=== PATIENT | female | born 1980 | race Caucasian/White ===

== ENCOUNTER 2018-04-08 13:13 | Emergency (ER) | payer MEDICAID, SELFPAY ==
[2018-04-08 13:28] VITALS: BP 145/92; PULSE 66; RESP 16; TEMP 37.2; O2SAT 99
--- NOTE | 2018-04-08 15:14 | ED.GENADUL_ITS ---
Discharge Plan Disposition Patient Disposition: HOME Condition: Good Discharge Details Chief Complaint: EarProblem Clinical Impression: URI, acute Primary Care Provider: Kayla Salguero V ED Provider: Elfego Morse Home Meds and New Rx's Prescriptions: No Action levonorgestrel [Mirena] 1 EACH intrauterine device 1 ea Intrauterine RF: 0 losartan 25 MG tablet 25 mg PO DAILY RF: 0 halobetasol propionate [Ultravate] 50 GM ointment 50 gm Topical HS Qty: 1 RF: 0 Discharge Instructions Stand Alone Forms: Work Release Referrals: [facility] Emergency Dept. [Outside] Discharge Data Discharge Date/Time-TO BE ENTERED AT DEPARTURE: 04/08/18 15:30 Medical Decision Making Probably start of uri. I advised to get plenty of rest and fluids. Return if symptoms worsen. Work note provided. HPI General Mode of arrival: ambulatory . Date/Time Provider Initiated Documentation: 04/08/18 15:12 . Limitations to Documentation: no limitations . Information obtained by: patient and family . History of Present Illness 38 year old F presents to the emergency department with the chief complaint of uri, HPI Narrative: 38 y/o here with c/o right ear pain and cough for last 24 hours. Daughter same complaint for two days. Kerry is a smoker. Denies any other symptoms. Related Data Home Medications Medication Instructions Recorded Confirmed levonorgestrel [Mirena] 1 ea INTRAUTERINE 11/16/12 losartan 25 mg PO DAILY tab-cap 12/07/17 04/08/18 halobetasol propionate [Ultravate 50 gm TOPICAL HS #1 script 12/15/17 04/08/18 0.05%] Previous Rx's Medication Instructions Recorded halobetasol propionate [Ultravate 50 gm TOPICAL HS #1 script 12/15/17 0.05%] Allergies Allergy/AdvReac Type Severity Reaction Status Date / Time No Known Drug Allergies Allergy Unverified 04/08/18 13:28 General Stated Complaint: EarProblem LAST: 5 Review of Systems Constitutional Reports as per HPI Eyes Reports system reviewed and no additional complaints, except as docu ENT Reports otalgia (right) Cardiovascular Reports system reviewed and no additional complaints, except as docu Respiratory Reports cough Gastrointestinal Reports system reviewed and no additional complaints, except as docu PFSH Family History Sister Hypothyroid Social History Smoking/Tobacco Use Status: Current every day Surgical History Cervical Procedure (~04/2012) Dilation and curettage Exam Const General: cooperative, comfortable and no acute distress Nutritional Appearance: average body habitus Orientation: alert, awake and oriented x3 HENHI Head: normal to inspection Ears: hearing grossly normal bilaterally, external ears normal and TM's normal bilaterally General nose exam: external nose normal, nares normal and nasal mucous membranes and turbinates normal Mouth: oral mucosae normal, lip normal, tongue normal, oropharynx normal and moist mucous membranes Throat: posterior oropharynx normal Eyes General: appearance normal, both eyes and all related structures Neck Neck: normal visual inspection, full ROM and no lymphadenopathy Resp Effort & Inspection: normal respiratory effort Auscultation: clear to auscultation bilaterally Cardio Rate: regular rate Rhythm: regular rhythm Skin General skin exam: no rashes or lesions noted Neuro General: alert, awake, oriented x3 and moves all extremities Extrem General: normal to inspection, full ROM and normal capillary refill Psych Appearance: grossly normal Mental Status: mental status grossly normal Speech and Movement: speech and movement normal Mood: congruent mood Affect: normal affect Attitude: cooperative Thought Process: normal Thought Content: normal Insight: insight good Judgment: judgment good Course Vital Signs Temperature 37.2 C 04/08/18 13:28 Pulse 66 04/08/18 13:28 Respiratory Rate 16 04/08/18 13:28 Blood Pressure 145/92 H 04/08/18 13:28 Pulse Oximetry 99 04/08/18 13:28 Temperature 37.2 C 04/08/18 13:28 Temperature Source Oral 04/08/18 13:28 Pulse 66 04/08/18 13:28 Respiratory Rate 16 04/08/18 13:28 Respiratory Effort 04/08/18 13:28 Blood Pressure 145/92 H 04/08/18 13:28 Blood Pressure Position Sitting 04/08/18 13:28 Pulse Oximetry 99 04/08/18 13:28 Oxygen Delivery Method Room Air 04/08/18 13:28 Oxygen Flow Rate 0 04/08/18 13:28
== END 2018-04-08 15:30 | disposition home or self-care (01) ==
PROVIDERS: Emergency Provider Nurse Practitioner Family; PCP Family Medicine
DX: J06.9 Acute upper respiratory infection, unspecified (principal); F17.210 Nicotine dependence, cigarettes, uncomplicated
CPT/HCPCS: 99282

== ENCOUNTER 2019-01-11 15:05 | Outpatient (CLI) | payer MEDICAID, SELFPAY ==
[2019-01-11 16:31] LABS: Anion Gap 10.8 mmol/L (3-11); BUN 11 mg/dL (7-18); CO2 25.2 mmol/L (21.0-32.0); CREATININE 0.74 mg/dL (0.55-1.02); Calcium 8.9 mg/dL (8.5-10.1); Calculated LDL 117 mg/dL; Chloride 101 mmol/L (98-107); Cholesterol 201 mg/dL (50-200); Glucose 85 mg/dL (70-100); HDL Cholesterol 52 mg/dL (40-60); Sodium 137 mmol/L (136-145); Triglyceride 161 mg/dL (30-150)
== END 2019-01-11 15:25 ==
PROVIDERS: PCP Family Medicine; Visit Provider Specialist/Technologist Athletic Trainer
DX: Z13.228 Encounter for screening for other metabolic disorders (principal); Z13.220 Encounter for screening for lipoid disorders; Z00.00 Encounter for general adult medical examination without abnormal findings
CPT/HCPCS: 36415; 80048; 80061; 83721

== ENCOUNTER 2019-05-20 18:51 | Outpatient (REF) | payer MEDICAID, SELFPAY | END 2019-05-20 19:11 | LOC: NCHCN 18:51 | PROVIDERS: PCP Family Medicine; Visit Provider Nurse Practitioner Family | DX: R10.9 Unspecified abdominal pain (principal) | CPT/HCPCS: 87086 ==

== ENCOUNTER 2019-06-28 16:10 | Outpatient (REF) | payer MEDICAID, SELFPAY ==
[2019-06-28 19:43] LABS: HCT 40.6 % (36.0-46.0); HGB 13.8 g/dL (12.0-15.5); Mean Corpuscular Hemoglobin 30.3 pg (27.0-33.0); Mean Corpuscular Volume 89.2 fL (80-95); Mean Platelet Volume 12.4 fL (8.0-11.0); Platelet Count 270 x1000/uL (130-400); RBC 4.55 m/cumm (4.00-5.20); RBC Distribution Width 12.5 % (11.7-14.6); White Blood Cell Count 8.87 k/cumm (4.4-10.8)
[2019-06-28 19:59] LABS: Anion Gap 12.8 mmol/L (3-11); BUN 8 mg/dL (7-18); CO2 26.2 mmol/L (21.0-32.0); CREATININE 0.71 mg/dL (0.55-1.02); Calcium 9.6 mg/dL (8.5-10.1); Chloride 98 mmol/L (98-107); Glucose 88 mg/dL (74-106); Potassium 3.6 mmol/L (3.5-5.1); Sodium 137 mmol/L (136-145); TSH (W/Ref FT4) 1.26 uIU/mL (0.36-3.74)
== END 2019-06-28 16:30 ==
LOC: NCHCN 16:10
PROVIDERS: PCP Family Medicine; Visit Provider Family Medicine
DX: I10 Essential (primary) hypertension (principal); R53.83 Other fatigue
CPT/HCPCS: 80048; 85027; 84443

== ENCOUNTER 2020-06-30 16:43 | Outpatient (REF) | payer MEDICAID, SELFPAY ==
[2020-06-30 19:50] LABS: Anion Gap 11.5 mmol/L (3-11); BUN 10 mg/dL (7-18); CO2 24.5 mmol/L (21.0-32.0); CREATININE 0.73 mg/dL (0.55-1.02); Calcium 9.7 mg/dL (8.5-10.1); Chloride 99 mmol/L (98-107); Glucose 90 mg/dL (74-106); Potassium 3.7 mmol/L (3.5-5.1); Sodium 135 mmol/L (136-145)
== END 2020-06-30 17:03 ==
LOC: NCHCN 16:43
PROVIDERS: PCP Family Medicine; Visit Provider Family Medicine
DX: I10 Essential (primary) hypertension (principal)
CPT/HCPCS: 80048

== ENCOUNTER 2020-07-14 20:36 | Outpatient (REF) | payer MEDICAID, SELFPAY ==
[2020-07-16 14:03] LABS: COVID-19 RT-PCR UVMMC Result Negative (Negative)
== END 2020-07-14 20:37 | disposition home or self-care (01) ==
LOC: NCHCN 20:36
PROVIDERS: PCP Family Medicine; Visit Provider Family Medicine
DX: Z20.822 Contact with and (suspected) exposure to COVID-19 (principal)
CPT/HCPCS: U0003

== ENCOUNTER 2021-06-22 16:31 | Outpatient (REF) | payer MEDICAID, SELFPAY ==
[2021-06-22 19:30] LABS: HCT 41.6 % (36.0-46.0); HGB 14.1 g/dL (11.2-15.7)
[2021-06-22 19:46] LABS: Anion Gap 11.5 mmol/L (3-11); BUN 10 mg/dL (7-18); CO2 23.5 mmol/L (21.0-32.0); CREATININE 0.7 mg/dL (0.55-1.02); Calcium 9.4 mg/dL (8.5-10.1); Chloride 98 mmol/L (98-107); Glucose 97 mg/dL (74-106); Potassium 3.9 mmol/L (3.5-5.1); Sodium 133 mmol/L (136-145); TSH (W/Ref FT4) 1.16 uIU/mL (0.36-3.74)
[2021-06-22 19:52] LABS: Hemoglobin A1C 5.1 % (<5.7)
== END 2021-06-22 16:32 | disposition home or self-care (01) ==
LOC: NCHCN 16:31
PROVIDERS: PCP Family Medicine; Visit Provider Family Medicine
DX: I10 Essential (primary) hypertension (principal); R21 Rash and other nonspecific skin eruption; Z86.59 Personal history of other mental and behavioral disorders
CPT/HCPCS: 80048; 83036; 84443; 85014; 85018

== ENCOUNTER 2021-10-21 15:47 | Outpatient (REF) | payer MEDICAID, SELFPAY ==
--- NOTE | 2021-10-21 15:00 | PAPFT_PTH ---
PATIENT: Kerry Reddy LOC: [facility] U#:[id number] AGE/SX: 41/F ROOM: RE10/21/[address]: [address] : 1980 BED: DIS: 10/21/2021 SPEC #: [id number] RECD: 10/21/21 18:33 STATUS: EVITALindsay REQ #: [id number] SARAH: 10/21/21 15:[address]: Brianda Franz DEPT: [facility] Cytology RECD BY: Maryan Ortiz ENTERED: 10/21/21 18:33 SP TYPE: PAPFT OTHR DR: Kayla Salguero V Tissues: 1 - CX/ENDOCX FOR PAP SMEARS Procedures: PAP THIN PREP/[facility] Screening HPV DNA PROBE Comments: [id number]
[2021-10-23 12:43] LABS: Chlamydia Result Negative (Negative); GC Result Negative (Negative)
== END 2021-10-21 15:48 | disposition home or self-care (01) ==
LOC: LBN 15:47
PROVIDERS: PCP Family Medicine; Visit Provider Nurse Practitioner Family
DX: Z11.3 Encounter for screening for infections with a predominantly sexual mode of transmission (principal); Z12.4 Encounter for screening for malignant neoplasm of cervix; Z11.51 Encounter for screening for human papillomavirus (HPV); A59.01 Trichomonal vulvovaginitis; N76.0 Acute vaginitis
CPT/HCPCS: 87491; 87591; 88142; 87624

== ENCOUNTER 2021-11-18 17:11 | Outpatient (REF) | payer MEDICAID, SELFPAY | END 2021-11-18 17:12 | disposition home or self-care (01) | LOC: LBN 17:11 | PROVIDERS: PCP Family Medicine; Visit Provider Physician Assistant Medical | DX: J02.9 Acute pharyngitis, unspecified (principal) | CPT/HCPCS: 87070 ==

== ENCOUNTER 2021-11-25 17:58 | Outpatient (REF) | payer MEDICAID, SELFPAY ==
[2021-11-25 19:22] LABS: Abs Immature Grans 0.04 10^3/uL (0.0-0.06); Absolute Lymphocyte Count 3.14 10^3/uL (1.2-3.4); Absolute Monocyte Count 0.96 10^3/uL (0.1-0.8); Absolute Neutrophil Count 7.92 10^3/uL (1.2-6.7); Basophils % 0.8; Eosinophils % 1.6; HGB 14.1 g/dL (11.2-15.7); Immature Grans % 0.3; Lymphocytes % 25.4; MCH 29.9 pg (27.0-33.0); MCHC 33.6 % (32.0-36.0); MCV 89 fL (80-95); MPV 11.9 fL (8.0-11.0); Monocytes % 7.8; Neutrophils % 64.1; Platelet Count 338 10^3/uL (130-400); RBC 4.71 10^6/uL (3.93-5.22); RDW 12.4 % (11.7-14.6); RDW-SD 40.8 fL; WBC 12.36 10^3/uL (4.4-10.8)
[2021-11-25 19:38] LABS: Glucose 100 mg/dL (74-106); TSH (W/Ref FT4) 0.82 uIU/mL (0.36-3.74)
== END 2021-11-25 17:59 | disposition home or self-care (01) ==
LOC: NCHCN 17:58
PROVIDERS: PCP Family Medicine; Visit Provider Family Medicine
DX: J02.9 Acute pharyngitis, unspecified (principal); R53.83 Other fatigue; B37.0 Candidal stomatitis
CPT/HCPCS: 82947; 84443; 85025; 87070

== ENCOUNTER 2022-04-04 12:59 | Outpatient (CLI) | payer OTHER, MEDICAID, SELFPAY ==
--- NOTE | 2022-04-04 09:00 | DI.RAD_ITS ---
Exam(s) XR FOOT RT COMPLETE EXAM: XR FOOT RT COMPLETE CLINICAL HISTORY: right ankle and foot pain M25.571 PAIN RT ANKLE AND JOINTS RT FOOT. TECHNIQUE: 2D digital imaging was performed. Three views. COMPARISON: CR LEFT FIFTH TOE from 11/07/2008 FINDINGS: BONES: No acute fracture is present. No bony destructive lesion is seen. Enthesophyte at Achilles in sertion. JOINTS: No dislocation present. Plantar arch is maintained. SOFT TISSUE: Normal. IMPRESSION: Unremarkable radiographs of the right foot. DATA REPOSITORY: RADIATION DOSE DELIVERED:
--- NOTE | 2022-04-04 09:00 | DI.RAD_ITS ---
Exam(s) XR ANKLE RT COMPLETE EXAM: XR ANKLE RT COMPLETE CLINICAL HISTORY: right ankle and foot pain, kicked M25.571 PAIN RT ANKLE. TECHNIQUE: 2D digital imaging was performed. Three views. COMPARISON: No exams were available for comparison FINDINGS: BONES: No acute fracture is present. No bony destructive lesion is seen. Small enthesophyte at Ach illes insertion. JOINTS: The ankle mortise is normally aligned. No significant tibiotalar joint space narrowing. SOFT TISSUE: Normal. IMPRESSION: Unremarkable radiographs of the right ankle. DATA REPOSITORY: RADIATION DOSE DELIVERED:
== END 2022-04-04 13:19 ==
PROVIDERS: PCP Family Medicine; Visit Provider Physician Assistant
DX: M25.571 Pain in right ankle and joints of right foot (principal)
CPT/HCPCS: 73610; 73630

== ENCOUNTER 2022-05-01 10:14 | Emergency (ER) | payer MEDICAID, SELFPAY ==
[2022-05-01 10:23] VITALS: BP 153/77; PULSE 73; RESP 16; TEMP 37.1; O2SAT 98
--- NOTE | 2022-05-01 10:30 | DI.RAD_ITS ---
Exam(s) XR WRIST RT COMPLETE EXAM: XR WRIST RT COMPLETE CLINICAL HISTORY: fall injury TECHNIQUE: COMPARISON: No exams were available for comparison FINDINGS: Three views were obtained. There is no evidence of acute fracture or dislocation. Carpal alignment appears within normal limits. IMPRESSION: RADIATION DOSE DELIVERED: Total DLP
--- NOTE | 2022-05-01 10:38 | ED.GENADUL_ITS ---
Discharge Plan Disposition Patient Disposition: Home Condition: Stable Discharge Details Clinical Impression: Right wrist pain Primary Care Provider: Kayla Salguero V ED Provider: Ronen Parks Home Meds and New Rx's Prescriptions: Continued citalopram [Celexa] 10 mg tablet 20 mg PO DAILY chlorthalidone 25 mg tablet 25 mg PO DAILY Mirena 20 mcg/24 hours (5 yrs) 52 mg intrauterine device 1 device IY ONCE Rx Instructions: as a single dose losartan 25 mg tablet 50 mg PO DAILY Label Comments: 01/11/18- 50mg PO daily per pt. Discharge Instructions Instructions: Wrist Injury (ED) Additional Instructions: X-ray is unremarkable. Wrist splint applied, wear as needed, advance activity as tolerated. Rest, elevate, cool compresses every 2 hours for 20 minutes. Hlhl-dhk-[id number] medications such as Tylenol and/or Motrin as directed for discomfort. Please watch for new or worsening symptoms and return to the ER for any concerns. As we discussed, if symptoms persist for the next week or so then I recommend following up with your primary care provider for repeat x-ray. Medical Decision Making This is a 42-year-old female, [id number], presents for right wrist injury she sustained last night when falling from a hover board. Denies any other injuries. Plan is to obtain x-ray and reassess. Neuro, vascular, tendon intact X-ray reveals no acute findings. Discussed x-ray findings with patient. [place] wrist splint applied. Standard discharge and return precautions were provided. Patient understands, is agreeable to this plan, and has no additional questions or concerns upon discharge. This documentation was generated using Run[employer]ation system, please disregard any oddities of phrase or misspellings. Medical Records Medical records reviewed: Yes I reviewed the patient's medical records. Sign Out No HPI General Mode of arrival: ambulatory . Date/Time Provider Initiated Documentation: 05/01/22 10:29 . Limitations to Documentation: no limitations . Information obtained by: patient . History of Present Illness 42 year old F presents to the emergency department with the chief complaint of R wrist injury, described as moderate, with intensity rated at 5. Quality is described as aching, and is localized to the right and upper extremity. Patient reports no radiation. Patient started experiencing this day(s) (1) and it has been constant. Immobilization improves symptom(s), Movement worsens symptoms . Patient notes no other symptoms.. Patient did receive the following treatments prior to arrival, none Related Data Home Medications Medication Instructions Recorded Confirmed chlorthalidone 25 mg tablet 25 mg PO DAILY 10/28/19 05/01/22 citalopram 10 mg tablet (Celexa) 20 mg PO DAILY 10/28/19 05/01/22 losartan 25 mg tablet 50 mg PO DAILY 10/28/19 05/01/22 levonorgestrel 20 mcg/24 hours (8 1 device intrauterine ONCE 01/20/20 05/01/22 yrs) 52 mg intrauterine device (Mirena) Allergies Allergy/AdvReac Type Severity Reaction Status Date / Time No Known Drug Allergies Allergy Verified 04/01/22 12:20 General Stated Complaint: Orthopedic LAST: 4 Review of Systems Constitutional Constitutional: Denies weakness Musculoskeletal Musculoskeletal: Denies deformity, Reports arthralgias, Denies numbness, Reports stiffness and Denies tingling Integumentary/Breasts Skin/Breast: Denies rash Neurologic Neurologic: Denies numbness, Denies tingling and Denies weakness PFSH All Active Problems (Updated 05/01/22 @ 11:50 by COLLIN Almeida) Right wrist pain (Acute) Encounter for insertion of mirena IUD (Acute) Contraception management (Acute) URI, acute (Acute) Acute pharyngitis (Acute) Surgical History Cervical Procedure (~04/2012) [facility]O [place] Dilation and curettage with SAB Family History Sister Hypothyroid Social History Smoking/Tobacco Use Status: Current every day Smoking risk assessment performed?: Yes Alcohol Intake: never Drug use: Never Substance use type: does not use Do you feel safe at home: Yes Do you feel safe in your relationship?: Yes Exam Const General: cooperative, healthy appearing, comfortable and no acute distress Orientation: alert and awake HENMT Head: normal to inspection, normocephalic and atraumatic Mouth: moist mucous membranes Eyes Conjunctivae: conjunctivae normal Neck Neck: normal visual inspection, trachea midline and supple Resp Effort & Inspection: normal respiratory effort and able to speak in complete sentences Cardio Rate: regular rate Rhythm: regular rhythm Skin General skin exam: no rashes or lesions noted Neuro General: patient alert, patient awake, moves all extremities and no focal motor deficits Cognition: normal cognition Speech: speech normal Gait: normal gait Motor: muscle tone normal throughout Sensory Exam: no sensory deficits noted Extrem General: full ROM and capillary refill normal Other: Right wrist with diffuse mild discomfort and swelling, worse over the ulnar aspect. Neuro, vascular, tendon intact. Full range of motion. Normal radial pulse and capillary refill. Small contusion over the lateral elbow. Otherwise hand, shoulder unremarkable Psych Appearance: grossly normal Mental Status: mental status grossly normal Course Vital Signs Vital signs: Vital Signs Temperature 37.1 C 05/01/22 10:23 Pulse 73 05/01/22 10:23 Respiratory Rate 16 05/01/22 10:23 Blood Pressure 153/77 H 05/01/22 10:23 Pulse Oximetry 98 05/01/22 10:23 Temperature 37.1 C 05/01/22 10:23 Temperature Source Temporal Artery Scan 05/01/22 10:23 Pulse 73 05/01/22 10:23 Respiratory Rate 16 05/01/22 10:23 Blood Pressure 153/77 H 05/01/22 10:23 Blood Pressure Position Sitting 05/01/22 10:23 Pulse Oximetry 98 05/01/22 10:23 Oxygen Delivery Method Room Air 05/01/22 10:23 Oxygen Flow Rate 0 05/01/22 10:23 Pain Level 7 05/01/22 10:23
--- NOTE | 2022-05-01 11:19 | DI.VRAD_ITS ---
PROCEDURE INFORMATION: Exam: XR Right Wrist Exam date and time: 05/01/2022 11:06 AM Age: 42 years old Clinical indication: Other: Fall injury TECHNIQUE: Imaging protocol: Radiologic exam of the Right wrist. Views: 3 or more views. COMPARISON: No relevant prior studies available. FINDINGS: Bones/joints: Normal. Soft tissues: Normal. IMPRESSION: No acute findings. Dictated and Authenticated by: Aram Huerta MD. Ordering:MAGALYS Hardwick MD
== END 2022-05-01 12:01 | disposition home or self-care (01) ==
PROVIDERS: Emergency Provider Physician Assistant; PCP Family Medicine
DX: S69.81XA Other specified injuries of right wrist, hand and finger(s), initial encounter (principal); V00.848A Other accident with standing micro-mobility pedestrian conveyance, initial encounter
CPT/HCPCS: 29125; 99283; 73110

== ENCOUNTER 2022-07-01 17:23 | Outpatient (CLI) | payer MEDICAID, SELFPAY ==
--- NOTE | 2022-07-01 16:23 | DI.RAD_ITS ---
Exam(s) XR ELBOW RT COMPLETE EXAM: XR ELBOW RT COMPLETE CLINICAL HISTORY: PAIN IN RT ELBOW, M25.521. TECHNIQUE: 2D digital imaging was performed of the left elbow. Three images were obtained. AP, lat eral and oblique views were obtained. COMPARISON: No exams were available for comparison FINDINGS: BONES: No acute fracture is present. No bony destructive lesion is seen. JOINTS: The elbow is normally aligned. No joint effusion is seen. SOFT TISSUE: Normal. IMPRESSION: Unremarkable radiographs of the right elbow. DATA REPOSITORY: RADIATION DOSE DELIVERED:
== END 2022-07-01 17:43 ==
LOC: DI 17:23
PROVIDERS: PCP Family Medicine; Visit Provider Nurse Practitioner Family
DX: M25.521 Pain in right elbow (principal)
CPT/HCPCS: 73080

== ENCOUNTER 2022-08-12 01:11 | Outpatient (CLI) | payer MEDICAID, SELFPAY ==
--- NOTE | 2022-08-12 | DI.MAMMO_ITS ---
Exam(s) MAMMO SCREENING EXAM: MAMMO SCREENING CLINICAL HISTORY: SCREENING, Z12.31. TECHNIQUE: Bilateral full field digital CC and MLO mammographic images were obtained with 3D tomosyn thesis and utilizing computer aided detection (CAD). COMPARISON: None. This is a baseline mammogram on this 42-year-old patient. FINDINGS: Fibroglandular tissue is moderately dense. There are no obvious spiculated masses nor malignant appearing microcalcification groups. There is no significant architectural distortion nor skin thickening-retraction. IMPRESSION: Dense bilateral fibroglandular tissue. No obvious radiographic evidence of malignancy. BI-RADS Category 1 - Negative Breast Density - Category C - Heterogeneously dense Breast density Category C or D implies that the patient has dense breast tissue. Dense breast tissue can make it harder to find cancer on a mammogram. Dense breast tissue is also associated with an incr eased risk of breast cancer. This information about the result of the mammogram report was provided to the patient to raise their awareness. Use this report when you speak with the patient about their risks for breast cancer, which includes their family history. At that time, you may recommend additional screening tests (Ultrasoun d or MRI) as these tests may add significant information. A negative radiographic report should not delay biopsy if a dominant or clinically suspicious mass is present. Up to ten percent of cancers are not identified on mammography. A negative report may reinforce clinical impression. Adenosis and dense breasts may obscure an underlying neoplasm. False positive reports average 6 to 10%. Patient will receive a letter notifying them of these results.
== END 2022-08-12 01:31 ==
LOC: DI 01:11
PROVIDERS: PCP Family Medicine; Visit Provider Family Medicine
DX: Z12.31 Encounter for screening mammogram for malignant neoplasm of breast (principal)
CPT/HCPCS: 77063; 77067

== ENCOUNTER 2023-08-11 16:23 | Outpatient (REF) | payer MEDICAID, SELFPAY ==
[2023-08-11 15:22] LABS: HCT 44.3 % (36.0-46.0); HGB 15.1 g/dL (11.2-15.7)
[2023-08-11 15:56] LABS: Hemoglobin A1C 5.2 % (<5.7)
[2023-08-11 17:06] LABS: ALT 61 U/L (14-59); AST 58 U/L (15-37); Albumin 4.1 g/dL (3.4-5.0); Alkaline Phosphatase 118 U/L (46-116); Anion Gap 11.2 mmol/L (3-11); BUN 7 mg/dL (7-18); Bilirubin, Total 0.2 mg/dL (0.2-1.0); CO2 25.8 mmol/L (21.0-32.0); CREATININE 0.8 mg/dL (0.55-1.02); Calcium 9.7 mg/dL (8.5-10.1); Chloride 97 mmol/L (98-107); Estimated GFR 94.87 (mL/min/1.73m2); Glucose 91 mg/dL (74-106); Potassium 3.9 mmol/L (3.5-5.1); Sodium 134 mmol/L (136-145); TSH (W/Ref FT4) 1.53 uIU/mL (0.36-3.74); Total Protein 7.9 g/dL (6.4-8.2)
== END 2023-08-11 16:24 | disposition home or self-care (01) ==
LOC: NCHCN 16:23
PROVIDERS: PCP Family Medicine; Referring Provider Family Medicine; Visit Provider Family Medicine
DX: Z00.00 Encounter for general adult medical examination without abnormal findings (principal); I10 Essential (primary) hypertension; R79.89 Other specified abnormal findings of blood chemistry; Z13.1 Encounter for screening for diabetes mellitus
CPT/HCPCS: 80053; 83036; 84443; 85014; 85018

== ENCOUNTER 2023-09-26 15:33 | Outpatient (REF) | payer MEDICAID, SELFPAY ==
[2023-09-28 15:12] LABS: Chlamydia Result Negative (Negative); GC Result Negative (Negative)
== END 2023-09-26 15:34 | disposition home or self-care (01) ==
LOC: LBN 15:33
PROVIDERS: PCP Family Medicine; Visit Provider Nurse Practitioner Women's Health
DX: Z11.3 Encounter for screening for infections with a predominantly sexual mode of transmission (principal)
CPT/HCPCS: 87491; 87591

== ENCOUNTER 2023-09-28 16:46 | Outpatient (REF) | payer MEDICAID, SELFPAY ==
[2023-09-28 19:22] LABS: ALT 61 U/L (14-59); AST 51 U/L (15-37); Albumin 4.3 g/dL (3.4-5.0); Alkaline Phosphatase 120 U/L (46-116); Bilirubin, Direct 0.1 mg/dL (0.0-0.2); Bilirubin, Total 0.3 mg/dL (0.2-1.0)
[2023-09-29 20:28] LABS: Hepatitis A Antibody IgM Negative (Negative); Hepatitis B Core Antibody Negative (Negative); Hepatitis B surface Ag Negative (Negative); Hepatitis C Ab w Rflx HCV PCR Negative (Negative)
== END 2023-09-28 16:47 | disposition home or self-care (01) ==
LOC: NCHCN 16:46
PROVIDERS: PCP Family Medicine; Visit Provider Family Medicine
DX: R74.01 Elevation of levels of liver transaminase levels (principal)
CPT/HCPCS: 80076; 86704; 86709; 86803; 87340

== ENCOUNTER → 2023-10-03 01:32 | Outpatient (CLI) | payer MEDICAID, SELFPAY ==
--- NOTE | 2023-10-03 15:45 | DI.MAMMO_ITS ---
Exam(s) MAMMO SCREENING EXAM: MAMMO SCREENING CLINICAL HISTORY: screening. TECHNIQUE: Bilateral full field digital CC and MLO mammographic images were obtained with 3D tomosyn thesis and utilizing computer aided detection (CAD). COMPARISON: Prior baseline mammogram of August 2022 was reviewed. FINDINGS: The fibroglandular tissue pattern is again noted be moderately dense. There are no obvious new spiculated masses nor malignant appearing microcalcification groups. There is no significant architectural distortion nor skin thickening-retraction. IMPRESSION: No radiographic evidence of malignancy. BI-RADS Category 1 - Negative Breast Density - Category C - Heterogeneously dense Breast density Category C or D implies that the patient has dense breast tissue. Dense breast tissue can make it harder to find cancer on a mammogram. Dense breast tissue is also associated with an incr eased risk of breast cancer. This information about the result of the mammogram report was provided to the patient to raise their awareness. Use this report when you speak with the patient about their risks for breast cancer, which includes their family history. At that time, you may recommend additional screening tests (Ultrasoun d or MRI) as these tests may add significant information. A negative radiographic report should not delay biopsy if a dominant or clinically suspicious mass is present. Up to ten percent of cancers are not identified on mammography. A negative report may reinforce clinical impression. Adenosis and dense breasts may obscure an underlying neoplasm. False positive reports average 6 to 10%. Patient will receive a letter notifying them of these results.
== END ==
PROVIDERS: PCP Family Medicine; Visit Provider Nurse Practitioner Women's Health
DX: Z12.31 Encounter for screening mammogram for malignant neoplasm of breast (principal)
CPT/HCPCS: 77063; 77067

== ENCOUNTER 2023-11-28 15:14 | Outpatient (REF) | payer MEDICAID, SELFPAY ==
[2023-11-28 15:58] LABS: ALT 68 U/L (14-59); AST 64 U/L (15-37)
== END 2023-11-28 15:15 | disposition home or self-care (01) ==
LOC: NCHCN 15:14
PROVIDERS: PCP Family Medicine; Visit Provider Family Medicine
DX: R74.01 Elevation of levels of liver transaminase levels (principal)
CPT/HCPCS: 84450; 84460

== ENCOUNTER → 2023-12-11 02:02 | Outpatient (CLI) | payer MEDICAID, SELFPAY ==
--- NOTE | 2023-12-11 | DI.US_ITS ---
Exam(s) US ABDOMEN LIMITED EXAM: US ABDOMEN LIMITED CLINICAL HISTORY: R74.01 Elevation levels of liver transaminase levels TECHNIQUE: Ultrasound abdomen performed using standard protocol. COMPARISON: US ABDOMEN ULTRASOUND from 05/12/2012 FINDINGS: PANCREAS: Normal where visualized. LIVER: There is diffuse increased echogenicity of the liver consistent with fatty infiltration. Hepa topetal flow in the Portal Vein. The liver measures in 18.0 cm length. No evidence of a hepatic mass. GALLBLADDER: No evidence of cholelithiasis. No evidence of wall thickening. No pericholecystic fluid identified. BILIARY SYSTEM: Common bile duct measures < 7 mm. No intrahepatic biliary ductal dilation. MAHARAJ'S SIGN: Negative. RIGHT KIDNEY: Kidney is normal in size. No evidence of renal calculi. No evidence of hydronephrosis. No renal mass or cyst identified. ASCITES: None seen. IMPRESSION: Hepatic steatosis and hepatomegaly. DATA REPOSITORY:
== END ==
PROVIDERS: PCP Family Medicine; Visit Provider Family Medicine
DX: R74.01 Elevation of levels of liver transaminase levels (principal)
CPT/HCPCS: 76705

== ENCOUNTER 2024-01-19 18:49 | Outpatient (REF) | payer MEDICAID, SELFPAY ==
--- OUTSIDE RECORDS SUMMARY | 2024-01-19 18:51 | XMS_ITS | Encounter Summary ---
Author Organization [facility] [place] [address] [place] [address] Care Team Providers Care Truck Assembler Name Role Phone SanpeteAdwoa ortiz APRN Primary Care Provider Encounter Details Date Type Department Care Team (Late st Contact Info) Description 09/29/2017 4:00 PM EDT Office [place] [address] [facility] [place] [address] Perianal condylomata Social History Tobacco Use Types Packs/Day Years Used Date Smoking Tobacco: Every Day Cigarettes Sex and Gender Information Value Date Recorded Sex Assigned at Not on file Gender Identity Not on file Sexual Orientation Not on file documented as of this encounter Last Filed Vital Signs Vital Sign Reading Time Taken Comments Blood Pressure 147/86 09/29/2017 4:01 PM EDT Pulse 89 09/29/2017 4:01 PM EDT Temperature 36.6 ??C (97.8 ??F) 09/29/2017 4:01 PM ED T Respiratory Rate - - Oxygen Saturation 100% 09/29/2017 4:01 PM EDT Inhaled Oxygen Concentration - - Weight 78 kg (172 lb) 09/29/2017 4:01 PM EDT Height - - Body Mass Index 28.66 09/20/2016 9:38 AM EDT documented in this encounter Progress Notes * Elfego Patton MD - 09/29/2017 4:00 PM EDT Colorectal Surgery Outpatient Visit ~ [facility] HPI: Kerry Reddy is a pleasant 37 y.o. female with known perianal condylomas who presents today with chief complaint of increasing size of her perianal condylomas. She has tried Aldara in the past which was effective but had noticeable side-effects, including fatigue and flu-like symptoms. She did not finish her last course of Aldara in 2017 because her condylomas had shrunk significantly and she couldn't tolerate the side effects of the medication. Despite her challenges with this medication, she is interested in potentially restarting this medication. She denies hematochezia, melena, change in bowel or bladder function, fevers, chills, CP, SOB, nausea or vomiting. The patient's PCP is Kayla Salguero MD. Review of Systems Constitutional: Negative for anorexia, fever, weight loss, malaise/fatigue and chills. Respiratory: Negative for shortness of breath and wheezing. Genitourinary: Negative for urge incontinence. Gastrointestinal: Negative for abdominal discomfort, vomiting, GERD, constipation, nausea, steatorrhea and diarrhea. Musculoskeletal: Negative for myalgias. Endocrine: Negative for polyuria. Cardiovascular: Negative for palpitations and syncope. Skin: Negative for urticaria. Past medical history: Patient Active Problem List Diagnosis Code ??? Perianal condylomata A63.0 Past surgical history: No past surgical history on file. Allergies: Review of patient's allergies indicates no known allergies. Medications: reviewed in the electronic medical record. Current Outpatient Prescriptions on File Prior to Visit Medication Sig Dispense Refill ??? losartan (COZAAR) 25 mg Tablet take 1 tablet by mouth once daily 0 ??? [DISCONTINUED] imiquimod (ALDARA) 5 % Cream in Packet Apply topically three times a week. (Patient not taking: Reported on 01/16/2017) 12 each 3 ??? [DISCONTINUED] acetaminophen (TYLENOL) 650 mg/20.3 mL Solution Take by mouth as needed. No current facility-administered medications on file prior to visit. Social history: reports that she has been smoking. She has been smoking about 0.50 packs per day. She does not have any smokeless tobacco history on file. Family medical history: No family history on file. Patient denies a family history of: colorectal cancer, colorectal polyps, diverticular disease, Crohn disease and ulcerative colitis. Patient admits a family history of: none. Physical exam: Vitals: Blood pressure 147/86, pulse 89, temperature 36.6 ??C (97.8 ??F), weight 78 kg (172 lb), SpO2 100 %. BMI: Body mass index is 28.66 kg/(m^2). General Appearance: well developed and well nourished Neuro: awake, alert and oriented to person, place and time no acute distress Psych: appropriate mood and affect Eyes: extra ocular muscles intact, pupils equally reactive to light and accomodation ENT: neck supple, no lyphadenopathy noted CV: regular rate and rhythm Resp: non-labored without adventitous sounds on auscultation Lymph: no edema noted Abdomen: soft, non-tender, and not distended, no masses or organomegaly Perineal exam: The patient was examined in the prone shelley-knife position with assistance from nursing. Multiple small external perirectal condylomas noted on external exam. Labs: reviewed. Endoscopy: reviewed. Path: reviewed. Imaging: reviewed. COREFO Responses 02/25/2016 03/22/2016 04/07/2016 09/20/2016 09/29/2017 Incontinence Scale 0 0 0 0 0 Social Impact Scale 8.33 2.77 2.77 2.77 2.77 Frequency Scale 0 12.5 0 12.5 12.5 Stool Releated Aspects 8.33 8.33 0 0 0 Medication Scale 0 0 0 0 0 Total COREFO Score 3.84 2.88 0.96 1.92 1.92 The COREFO questionnaire is a validated questionnaire with 27 questions to assess colorectal functional outcome. Patients are asked to consider the two week period prior before filling out the questionnaire. Category scores range from zero to 100. A total score is calculated from the categories above, also ranging from zero to 100. A higher score represents an increased level of functional disturbance. Impression/Plan: Kerry Reddy is a 37 y.o. female with perirectal condylomas. Physical exam demonstrates multiple small external perirectal condylomas. Anoscopy has demonstrated one 3mm right posterior condyloma as well as a left lateral wall lesion. I am concerned that one or both of these intra-luminal lesions may represent an AIN lesion. Given her intolerance of Aldara in the past and new rectal lesions, we'll plan for operative intervention at this time. Patient consented for an exam underanesthesia, desication of perianal warts, and rectal lesion biopsies. Elfego Patton MD I have seen the patient and reviewed the resident's above history and I agree with the details as written. The assessment and plan were formulated in discussion with me and I agree with them as documented. Perineal, FABIEN and anoscopy performed by me Chiu assisted for exam. There are several small, scattered condylomata on the perianal skin - the largest is in right posterior. FABIEN with small irregularity. Anoscopy with large anoscope - there is a 3 mm white plaque in the right posterior anal canal suspicious for AIN. There is granularity of the anal canal in the left lateral - possible intra anal condyloma Given the intra anal canal and perianal condylomata, I have recommended EUA, excision of the intra-anal lesion for histology, and electrodessication of the perianal skin condylomas. We did discuss treatment with Andria for the external lesions but given that therapy was stopped early due to systemic symptoms, I do not think Kerry will be able to complete the treatment this time. Also discussed electrodessication in the office and biopsy - Kerry had this procedure in the office once before - found the injections of numbing medication too painful to do it again Booked for OR - consent signed. I personally spent a total of 25 minutes in [id number] consultation with the patient, of which 15were in patient education and counseling. Rosairo aPrtida MD marklogic developer Division of Colon and Rectal Surgery [facility] Pager [phone] documented in this encounter Plan of Treatment Not on file documented as of this encounter Visit Diagnoses Diagnosis Perianal condylomata Condyloma acuminatum documented in this encounter Care Teams Truck Assembler Relationship Specialty Start Date End Date Adwoa Smith APRN PCP - General 05/04/10 01/06/20 documented as of this encounter
--- OUTSIDE RECORDS SUMMARY | 2024-01-19 18:51 | XMS_ITS | Encounter Summary ---
Author Organization [facility] [place] [address] [place] [address] Care Team Providers Care Professor Of Education Name Role Phone CattaraugusAdwoa ortiz MAKAYLA Primary Care Provider [phone] Reason for Visit * Reason Comments Follow-up Encounter Details Date Type Department Care Team (Latest Contact Info) Description 11/14/2017 3:30 PM EDT Office [place] [id number] Rosario Partida MD [facility] [place] [address] Anal intraepithelial neoplasia I (AIN I) Social History Tobacco Use Types Packs/Day Years Used Date Smoking Tobacco: Every Day Cigarettes Sex and Gender Information Value Date Recorded Sex Assigned at Not on file Gender Identity Not on file Sexual Orientation Not on file documented as of this encounter Last Filed Vital Signs Vital Sign Reading Time Taken Comments Blood Pressure 154/95 11/14/2017 3:11 PM EDT Pulse 75 11/14/2017 3:11 PM EDT Temperature 36.5 ??C (97.7 ??F) 11/14/2017 3:11 PM ED T Respiratory Rate 18 11/14/2017 3:11 PM EDT Oxygen Saturation 99% 11/14/2017 3:11 PM EDT Inhaled Oxygen Concentration - - Weight 77.1 kg (170 lb) 11/14/2017 3:11 PM EDT Height - - Body Mass Index 27.44 10/12/2017 6:44 AM EDT documented in this encounter Progress Notes * Rosario Partida MD - 11/14/2017 3:30 PM EDT Colon and Rectal Surgery Post-operative Check Date = 10/12/2017 Operation = EUA with biopsy of anal canal lesion and fulguration of perianal condyloma LOS = PACU DC 30-day complication/grade of worst = None Path: ? 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 See ??discussion #1. Electronically signed by: ??Milo MCCALL PhD, Vinod Cooper Verified: ??10/17/2017 ?Pathologist Performed at: ??-[facility] Dept. of Pathology, [place], [place] COREFO Responses 03/22/2016 04/07/2016 09/20/2016 09/29/2017 11/14/2017 Incontinence Scale 0 0 0 0 0 Social Impact Scale 2.77 2.77 2.77 2.77 2.77 Frequency Scale 12.5 0 12.5 12.5 0 Stool Releated Aspects 8.33 0 0 0 0 Medication Scale 0 0 0 0 0 Total COREFO Score 2.88 0.96 1.92 1.92 0.96 Interval History: Kerry is doing well. No pain, no bleeding. No issues with incontinence BP (!) 154/95 Pulse 75 Temp 36.5 ??C (97.7 ??F) Resp 18 Wt 77.1 kg (170 lb) SpO2 99% BMI 27.44 kg/m2 Body mass index is 27.44 kg/(m^2). Gen NAD Anal exam with Paz assisting: Anus is closed. No perianal skin irritation. There are 2 persistent anal condyloma in the posterior midline. Non-tender. 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 She still has 2 persistent areas of external anal condyloma. I offered to numb the area and excise these today but she prefers to wait until her follow up visit in 4 months Return to clinic in 4 months for anoscopy to assess for recurrence of AIN and excision of condylomain the office with local anesthesia. 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
--- OUTSIDE RECORDS SUMMARY | 2024-01-19 18:51 | XMS_ITS | Encounter Summary ---
[facility] [place] [address] Care Team Providers Care Tub Operator Name Role Phone TallahatchieAdwoa ortiz APRN Primary Care Provider [phone] Encounter Details Date Type Department Care Team (Late st Contact Info) Description 03/02/2018 Telephone [place] [address] Rosario Partida MD [facility] [place] [address] Social History Tobacco Use Types Packs/Day Years Used Date Smoking Tobacco: Every Day Cigarettes Smokeless Tobacco: Never Alcohol Use Standard Drinks/Week Comments Yes 0 (1 standard drink = 0.6 oz pur e alcohol) social Sex and Gender Information Value Date Recorded Sex Assigned at Not on file Gender Identity Not on file Sexual Orientation Not on file documented as of this encounter Miscellaneous Notes * Telephone Encounter - Rosario Partida MD - 03/02/2018 4:35 PM EDT Called and spoke with Kerry regarding her pathology. Had AIN 1 and condyloma as previous. She is healing well. Will see her back in 4 months for an exam Rosario Paritda MD tie mill operator Division of Colon and Rectal Surgery [facility] Pager [phone] documented in this encounter Plan of Treatment Not on file documented as of this encounter Visit Diagnoses Not on filedocumented in this encounter Care Teams Tub Operator Relationship Specialty Start Date End Date Adwoa Smith APRN PCP - General 05/04/10 01/06/20 documented as of this encounter
--- OUTSIDE RECORDS SUMMARY | 2024-01-19 18:51 | XMS_ITS | Encounter Summary ---
Author Organization [facility] [place] [address] [place] [address] Care Team Providers Care Fuel Oil Clerk Name Role Phone [place]ass[place] ParkAdwoa ortiz MAKAYLA Primary Care Provider [phone] Reason for Visit * Reason Comments Follow-up Encounter Details Date Type Department Care Team (Late st Contact Info) Description 06/26/2018 9:00 AM EST Office Visit [place] [address] Rosario Partida MD [facility] [place] [address] Perianal condylomata Social History Tobacco Use Types [...] Sign Reading Time Taken Comments Blood Pressure 139/89 06/26/2018 9:02 AM EST Pulse 74 06/26/2018 9:02 AM EST Temperature 36.6 ??C (97.9 ??F) 06/26/2018 9:02 AM ES T Respiratory Rate 18 06/26/2018 9:02 AM EST Oxygen Saturation 96% 06/26/2018 9:02 AM EST Inhaled Oxygen Concentration - - Weight 78 kg (172 lb) 06/26/2018 9:02 AM EST Height - - Body Mass Index 27.76 02/20/2018 9:12 AM EDT documented in this encounter Progress Notes * Rosario Partida MD - 06/26/2018 9:00 AM EST Colon and Rectal Surgery Follow-up Office Visit COREFO Responses 09/20/2016 09/29/2017 11/14/2017 02/20/2018 06/26/2018 Incontinence Scale 0 0 0 0 2.77 Social Impact Scale 2.77 2.77 2.77 5.55 8.33 Frequency Scale 12.5 12.5 0 12.5 0 Stool Releated Aspects 0 0 0 8.33 0 Medication Scale 0 0 0 0 8.33 Total COREFO Score 1.92 1.92 0.96 3.84 4.8 Interval History: Kerry is a 38 yo woman with a history of anal condyloma and AIN1 treated with local excision in the office and then excision and electrodesiccation in the office. She was last seenby me in February 2018. She returns today for routine follow up. Overall thinks things are going well. Notes feeling a small lesion on the right labia. Nothing significant she has noted around the anus. No lymph nodes, no rectal bleeding. BP 139/89 Pulse 74 Temp 36.6 ??C (97.9 ??F) Resp 18 Wt 78 kg (172 lb) SpO2 96% BMI 27.76 kg/m?? Body mass index is 27.76 kg/m??. The patient was examined in the prone shelley knife position with Aram assisting. The perianal skin has condylomatous lesions on the right anterior towards the right labia, in the posterior midline towards the coccyx, and 2 much smaller condylomatous lesions in the left lateral anal skin. The anus isclosed. On digital rectal exam resting tone is normal and squeeze tone is normal. There is normal relaxation with valsalva. There are no masses. There is no gross blood. There is no tenderness to palpation. Anoscopy: The well lubricated anoscope was inserted into the anal canal and the entire anal canal and distal rectum were inspected. Findings include: normal distal rectal mucosa. No condylomatous appearing lesions in the anal canal. After obtaining informed consent for treatment of the perianal lesions with excision and electrocautery, the skin was prepped with betadine. The skin of the anal margin was numbed with 1% lidocaine plain (7cc injected). The 4 condylomatous lesions were excised with scissors. The base of each lesionwas then treated with electrocautery for hemostasis. No bleeding at the end of the procedure. Kerry tolerated the procedure well A/P: Kerry is a 38 yo woman with a history of AIN 1 and anal condyloma. She continues to have recurrence with excision and electrodesiccation. We discussed continuing with surveillance and office excision/electrodesiccation if continued recurrence, or trial of imiquimod to see if we can prevent recurrence or increase interval between recurrence. Kerry would like to try Imiquimod. She thinks she may have tried this in the past but thought it made her feel sick. Did not remember skin irritation. Will plan for Imiquimod applied 3 times a week on non-consecutive nights. Apply to the right labia and skin around the anus before bedtime and washoff in the morning. She will use it for 14 weeks and then I will see her back about a month after this. If she does not tolerate the 3 times a week application, she will try decreasing to 2 times a week. Follow up in 6 months for repeat anoscopy. Will send rx to her requested pharmacy I personally spent a total of 25 minutes in [id number] consultation with the patient, of which 15were in patient education and counseling. Rosario Partida MD nut grader Division of Colon and Rectal Surgery [facility] Pager [phone] documented in this encounter Plan of Treatment Not on file documented as of this encounter Visit Diagnoses Diagnosis Perianal condylomata Condyloma acuminatum documented in this encounter Care Teams Fuel Oil Clerk Relationship Specialty Start Date End Date Adwoa Smtih APRN PCP - General 05/04/10 01/06/20 documented as of this encounter
--- OUTSIDE RECORDS SUMMARY | 2024-01-19 18:51 | XMS_ITS | Encounter Summary ---
Author Organization [facility] [place] [address] Care Team Providers Care Truck Driver'S Offsider Name Role Phone BucksAdwoa ortiz MAKAYLA Primary Care Provider [phone] Encounter Details Date Type Department Care Team (Late st Contact Info) Description 10/12/2017 7:30 AM EDT - 10/12/2017 8:58 AM EDT Surgery [place] [id number] Rosario Partida MD [facility] [place] [address] BIOPSY ANORECTAL WALL (WRVU 4.04) Social History Tobacco Use Types Packs/Day Years Used Date Smoking Tobacco: Every Day Cigarettes Smokeless Tobacco: Never Tobacco Cessation:Ready to Q uit: Yes Alcohol Use Standard Drinks/Week Comments Yes 0 (1 standard drink = 0.6 oz pur e alcohol) social Sex and Gender Information Value Date Recorded Sex Assigned at Not on file Gender Identity Not on file Sexual Orientation Not on file documented as of this encounter Last Filed Vital Signs Vital Sign Reading Time Taken Comments Blood Pressure 160/99 10/12/2017 8:47 AM EDT Pulse 74 10/12/2017 6:44 AM EDT Temperature 36.5 ??C (97.7 ??F) 10/12/2017 8:19 AM ED T Respiratory Rate 16 10/12/2017 8:47 AM EDT Oxygen Saturation 95% 10/12/2017 8:47 AM EDT Inhaled Oxygen Concentration - - Weight 78 kg (172 lb) 10/12/2017 6:44 AM EDT Height 167.6 cm (5' 6) 10/12/2017 6:44 AM EDT Body Mass Index 27.76 10/12/2017 6:44 AM EDT documented in this encounter Discharge Instructions * Discharge Instructions* Ingrid Flor RN - 10/12/2017 8:30 AM EDT POST ANESTHESIA INSTRUCTIONS Go home, rest, use caution on stairs. Change positions slowly. Do not smoke if you are alone. Diet light to regular as tolerated today. If nausea occurs start with clear liquids and progress slowly. No driving, operating machinery, alcoholic beverages and no important decisions for 24 hours. Monitor IV site for signs and symptoms of infection: increasing redness, swelling, foul drainage, if occurs contact M.D. Patients who have had endotrachial tubes (this tube, used by anesthesia department, is passed down your throat after you are asleep, to ensure safe air passage during your operation). A sore throat is normal due to the tube. Cold liquids or soothing lozenges will help ease the discomfort. The generalized muscle aches are due to the medication given to you just before the tube is inserted. As the medication wears off, you may develop muscle soreness, which usually goes away in 12-24 hours. * Patient Instructions* Anahi Foss MD - 10/12/2017 8:07 AM EDT DIVISION OF COLON & RECTAL SURGERY Anorectal Surgery Patient Post-operative Discharge Instructions 1. Wound Care ?? If there is a dressing, please leave the dressing intact today and remove it tomorrow morning. If you need to move your bowels, the dressing may be removed sooner. ?? Expect some drainage - this may be residual pus, or may be a small amount of blood or mucus - this is normal / expected. It may last for a 2-3 weeks. ?? Please use fluffy 4x4 gauze to absorb any drainage and keep your bottom dry. ?? You may have some packing your wound that you should remove in the sitz bath tomorrow morning. ?? You may take warm showers starting tomorrow. If you are having a lot of discomfort or muscle tightness, use a sitz bath to relax your muscles. ?? Sitz bath instructions: Soak your buttocks in plain warm tapwater for 15 minutes as needed. Thisis comforting and also increase blood flow to the area to aid in healing. ?? You may sit on a pillow but do not sit on donut cushions as it spreads the buttocks. 2. Pain medications ?? A local anesthestic numbing block was performed during your procedure for postoperative pain control. ?? Please take [id number] pain medications for post-operative discomfort. ?? Acetaminophen (Tylenol) 1000 mg by mouth every 6 hours. ?? Ibuprofen (Motrin/Advil) 400 mg by mouth every 6 hours with food & plenty of liquids or Naproxen (Aleve) 500 mg twice daily. Take either Ibuprofen or Naproxen not both. ?? You may alternate these medications every 3 hours; ex. Tylenol at 12pm, Ibuprofen at 3pm, Tylenol at 6pm, Ibuprofen at 9 pm. ?? In addition, if your pain is uncontrolled with the medications above, please use prescribed narcotic pain medication if given to you. As you use less pain medication, narcotics should be the firstto eliminate. ?? Narcotic pain medication is known to cause constipation. 3. Avoid getting constipated ?? Drink plenty of water and fluids (over 2 liters per day). ?? Each morning please take a daily fiber supplement (such as Citrucel or BeneFiber), one heaping tablespoon in 8 oz. of water. (MiraLax may be recommended instead of fiber) ?? While taking narcotic pain medications please also take a stool softener (Colace 100 mg two to three times per day), which can be purchased over the counter. ?? If you do not have a bowel movement in 48 hours then take 60 cc of Milk of Magnesia every 12 hours until you have a bowel movement. If you do not have a bowel movement after 2 doses of Milk of Magnesia please call (see below). 4. When to call ?? Fever > 101.5 F ?? worsening pain ?? active bleeding, passing blood clots ?? difficulty/inability to pass urine (urinary retention) or stool (constipation) ?? any other worrisome condition or question ?? during regular work hours call the Surgery Clinic at ?? after hours / nights / weekends / holidays: call and ask for the General Surgery Resident doctor On-Call. ?? Follow-up. You will have a post-operative follow-up appointment with your Surgical Team scheduled, usually in 2 - 4 weeks. If you have any questions, please call . Division of Colon and Rectal Surgery, [facility] [address] ??? [place] [address] ??? documented in this encounter Medications at Time of Discharge Medication Sig Dispensed Refills Start Date End Date ibuprofen (ADVIL;MOTRIN) 200 mg Tablet Take 1-2 tablets by mouth every 6 hours as needed for Pain. 10/12/2017 acetaminophen (TYLENOL) 500 mg Tablet Take 1-2 tablets by mouth every 6 hours as needed for Pain. 10/12/2017 losartan (COZAAR) 25 mg Tablet take 1 tablet by mouth once daily 0 11/18/2016 02/20/2018 documented as of this encounter H&P Notes * Anahi Foss MD - 10/12/2017 7:01 AM EDT Colorectal Surgery Pre-Operative H&P Please see Dr. Partida's note from 09/29/17 for full details. Reviewed the pre-operative H&P with patient. In brief, she is here for fulguration of anal condylomas. Patient reports condition unchanged since last seen in clinic. Feels well today, denies any fevers, chills, cough, chest pain, SOB, or n/v Vitals Most Recent Vitals: 10/12/17 0644 BP: (!) 151/101 Pulse: 74 Resp: 18 Temp: 36.4 ??C (97.5 ??F) SpO2: 98% Physical Exam Gen: NAD, A&Ox3 HEENT: MMM Pulm: CTAB CV: RRR ABD: s/nt/nd Ext: WWP, no c/c/e Risks and benefits of the procedure have been reviewed with the patient and informed consent has been obtained. Proceed with planned procedure. Plan to admit patient back to Same Day afterwards. Anahi Foss MD documented in this encounter Miscellaneous Notes * Brief Op Note - Rosario Partida MD - 10/12/2017 8:21 AM EDT Brief Operative Note Patient Name: Kerry Reddy : [id number] MR#: [id number] Case Date: 10/12/2017 Surgeon: Surgeon(s) and Role: * Rosario Partida MD - Primary Preoperative diagnosis: ANAL CONDYLOMA Postoperative diagnosis: ANAL CONDYLOMA Procedure(s) (LRB): BIOPSY ANORECTAL WALL (WRVU 4.04) (N/A) ANAL LESION DESTRUCTION, SIMPLE, ELECTRODESICCATION (WRVU 1.91) (N/A) Anesthesia: Anesthesia type not filed in the log. Findings: Right posterior anal canal white plaque - approx 5mm - excised with scissors. Multiple, small external condylomatous appearing lesions on the perianal skin - electrodesiccated with monopolar cautery Complications: None Intake: Intraprocedure Crystalloid Total None Transfusion No data found. Output: Estimated Blood Loss: * No values recorded between 10/12/2017 7:56 AM and 10/12/2017 8:12 AM * Urine Output:: (no blood products) Other Output: (no other output recorded) Drains: None Specimens removed during surgery: Order Name Source Comment Collection Info Order Time SPECIMEN TO PATHOLOGY OR3 32333 ANAL CONDYLOMA Right Posterior Anal Cannal Lesion excision No 10/12/2017 8:01 AM Number of tissue samples (in container) 1 Time specimen removed from patient: 8:00 AM Biospecimen to store? No Disposition: awakened from anesthesia, extubated and taken to the recovery room in a stable condition, having suffered no apparent untoward event. Condition: doing well without problems Attestation: Case Date: 10/12/2017 I performed this procedure without the involvement of a resident. (Please see the Surgical Encounter Summary for any Implant and Specimen details pertinent to this patient.) Rosario Partida MD billing typist Division of Colon and Rectal Surgery [facility] Pager [phone] * Op Note - Rosario Partida MD - 10/12/2017 8:20 AM EDT [facility] Oper[place] Patient Name: Kerry Reddy : [id number] MR#: [id number] Case Date: 10/12/2017 Surgeon: Surgeon(s) and Role: * Rosario Partida MD - Primary Preoperative diagnosis: ANAL CONDYLOMA Postoperative diagnosis: ANAL CONDYLOMA Procedure(s) (LRB): BIOPSY ANORECTAL WALL (WRVU 4.04) (N/A) ANAL LESION DESTRUCTION, SIMPLE, ELECTRODESICCATION (WRVU 1.91) (N/A) Anesthesia: Anesthesia type not filed in the log. Estimated Blood Loss: * No values recorded between 10/12/2017 7:56 AM and 10/12/2017 8:12 AM * Specimens removed during surgery: Order Name Source Comment Collection Info Order Time SPECIMEN TO PATHOLOGY OR3 [id number] ANAL CONDYLOMA Right Posterior Anal Cannal Lesion excision No 10/12/2017 8:01 AM Number of tissue samples (in container) 1 Time specimen removed from patient: 8:00 AM Biospecimen to store? No Drains: None Surgical Closure: NA Disposition: awakened from anesthesia, extubated and taken to the recovery room in a stable condition, having suffered no apparent untoward event. Condition: doing well without problems (Please see the Surgical Encounter Summary for any Implant and Specimen details pertinent to this patient.) HPI/Surgical Indications: Kerry is a 37-year-old woman with history of anal condyloma. She had previously been treated with Aldara and electrodesiccation in the office. She presented with recurrent growth of external perianal condyloma. On examination in the office she was also noted to have an approximately 3 mm whitish plaque in the anal canal. Given her intolerance of prior office and patient- applied treatments as well as the anal canal lesion, I recommended examination the operating room,transanal excision of the anal canal lesion, and electrodesiccation of the external perianal skin condylomata. Informed consent was signed patient the option reviewed on the morning of surgery. Procedure Description: Kerry was brought to the operating room and intubated on the [place]. She was then positioned in the prone jackknife position with the arms out on arm boards and gel rolls under the shoulders and hips. The breasts were not under pressure. The buttocks were taped apart after the bed was flexed. The perineum was prepped with Betadine and sterilely draped. A surgical timeout was called confirming the patient procedure to be performed. Antibiotics were not indicated and she had SCDs for DVT prophylaxis. On external examination there were multiple small, external condylomata. There were 2 larger lesions, approximately 5 mm in the posterior quadrants. All of the perianal lesions were treated with electrodesiccation of the epidermis. On digital rectal exam there were no palpable lesions within the anal canal. A medium Hill-Madison was used to inspect the anal canal. In the right posterior quadrantthere was an approximately 5 mm whitish plaque. This was excised using Metzenbaum scissors. The mucosal defect was closed using a 3-0 Vicryl running suture for hemostasis. The anal canal was irrigated and there was no evidence of active bleeding or other lesions. An anal block was performed with 266 mg of Exparel mixed with 20 cc of injectable saline. The buttock tapes were removed. Patient was returned supine position on the [place] and exited in the operating without difficulty. All counts were correct at the end the case. Infection Bundle used? N/A Attestation: Case Date: 10/12/2017 I performed this procedure without the involvement of a resident. Rosario Partida MD 10/12/2017 documented in this encounter Plan of Treatment Not on file documented as of this encounter Procedures Procedure Name Priority Date/Time Associated Diagnosis Comments SPECIMEN TO PATHOLOGY Routine 10/12/2017 8:01 AM EDT SURGICAL PATHOLOGY REPORT Routine 2017 8:00 AM EDT ANAL LESION DESTRUCTION, SIMPLE, ELECTRODESICCATION (WRVU 1.91) 10/12/2017 7:32 AM EDT ANAL CONDYLOMA BIOPSY ANORECTAL WALL (WRVU 4.04) 10/12/2017 7:32 AM EDT ANAL CONDYLOMA documented in this encounter Results * Specimen to Pathology (10/12/2017 8:01 AM EDT) AP Specimen 10/12/2017 8:01 AM EDT 10/12/2017 8:23 AM EDT Narrative [facility] - 10/12/2017 8:23 AM EDT Specimen requisition ordered. ??Separate Pathology report to follow Resulting Agency Comment Spec In Lab Rosario Partida MD PATHOLOGY/CYTOLOGY O RDERALILIANA [facility] [place] [address] * Surgical Pathology Report (10/12/2017 8:00 AM EDT) Final Diagnosis [id number] ? Location: [facility]; [facility]; The signing pathologist has (i) examined the relevant preparation(s) for the specimen(s) and (ii) rendered or confirmed the diagnosis(es). . 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 See discussion #1. Electronically signed by: ??Milo MCCALL PhD, Vinod Cooper Verified: ??10/17/2017 ?Pathologist Performed at: ??-[facility] Dept. of [place]ology, [place], [place] DISCUSSION 1. ??Multiple levels were examined. ADDITIONAL STUDIES Immunohistochemistry Studies: Formalin-fixed, paraffin-embedded tissue sections are studied using the polymer technique with appropriate positive and negative controls. ?These IHC studies provide the pathologist with adjunctive diagnostic information. Antibody specificity has been verified by testing antibodies on a series of in-house tissues with known immunohistochemical performance characteristics. The clinical interpretation of any antibody positive staining or its absence is evaluated within the context of clinical presentation, morphology, histopathological criteria and other diagnostic tests. Block ? Antibody ?Result (Positive/Negative) A1 ? p16 ?Pathcy positive CLINICAL INFORMATION Specimen Submitted: A - Right posterior anal cannal lesion Clinical History and Diagnosis: Anal condyloma SPECIMEN PROCESSING A - Labeled/Fixative: Right posterior anal canal lesion, formalin. Quantity/Size: Single, 0.5 x 0.3 x 0.3 cm. Tissue Description: Soft, pink mucosa with a 0.2 cm white papule. Sections/Processing: Bisected. (T1) ??sns 10/17/2017 10:27 AM EDT [facility] GI Biopsy 10/12/2017 8:00 AM EDT 10/12/2017 8:00 AM EDT Rosario Partida MD PATHOLOGY/CYTOLOGY O RDERABLES Performing Organization Address City/State/[facility] Co de Phone Number [facility] [place] [address] documented in this encounter Visit Diagnoses Not on filedocumented in this encounter Administered Medications Inactive Administered Medications - up to 3 most recent administrations Medication Order MAR Action Action Date Dose Rate Site acetaminophen (TYLENOL) tablet 1,000 mg 1,000 mg, Oral, ONCE, 1 dose, On Divya 10/12/17 at 0930, Maximum dose of acetaminophen is 4000 mg from all sources in 24 hours., Routine Given 10/12/2017 9:32 AM EDT 1,000 mg BUpivacaine liposome (PF) (EXPAREL) 1.3 % (13.3 mg/mL) injection for infiltration ONCE PRN, Starting on Divya 10/12/17 at 0805, Until Divya 10/12/17 at 1145, Intra-Operative (Intra-Procedure) Given 10/12/2017 8:05 AM EDT 266 mg 19- Surgical Site lactated Ringers infusion 1,000 mL 1,000 mL, at 100 mL/hr, Intravenous, CONTINUOUS, Starting on Divya 10/12/17 at 0730, Until Divya 10/12/17 at 0940, Day of Surgery (Day of Procedure) New Bag 10/12/2017 7:30 AM EDT 1,000 mLs 100 mL/hr lidocaine (XYLOCAINE) 10 mg/mL (1 %) injection 3 mg 3 mg (0.3 mL), Subcutaneous, ONCE PRN, 1 dose, Starting on Divya 18 at 0702, Until Divya 10/12/17 at 0717, for discomfort with PIV insertion, Day of Surgery (Day of Procedure), Routine Given 10/12/2017 7:17 AM EDT 3 mg documented in this encounter Active and Recently Administered Medications Times are shown in EDT. Scheduled Medication Order 10/10/2017 10/11/2017 10/12/2017 acetaminophen (TYLENOL) tablet 1,000 mg (COMPLETED) 1,000 mg, Oral, ONCE, 1 dose, On Divya 10/12/17 at 0930, Maximum dose of acetaminophen is 4000 mg from all sources in 24 hours., Routine 0932 (Given - Provid er: Ingrid Flor RN) Continuous Medication Order 10/10/2017 10/11/2017 10/12/2017 lactated Ringers infusion 1,000 mL (CANCELED) 1,000 mL, at 100 mL/hr, Intravenous, CONTINUOUS, Starting on Divya 10/12/17 at 0730, Until Divya 10/12/17 at 0940, Day of Surgery (Day of Procedure) 0730 (New Bag - Prov ider: Haley Issa RN) PRN Medication Order 10/10/2017 10/11/2017 10/12/2017 BUpivacaine liposome (PF) (EXPAREL) 1.3 % (13.3 mg/mL) injection for infiltration (CANCELED) ONCE PRN, Starting on Divya 10/12/17 at 0805, Until Divya 18 at 1145, Intra-Operative (Intra-Procedure) 0805 (Given - Provid er: Rosario Partida MD - Comment: 20ml exparel mixed with 20ml injectable saline. All 40ml injected.) lidocaine (XYLOCAINE) 10 mg/mL (1 %) injection 3 mg (COMPLETED) 3 mg (0.3 mL), Subcutaneous, ONCE PRN, 1 dose, Starting on Divya 10/12/17 at 0702, Until Divya 10/12/17 at 0717, for discomfort with PIV insertion, Day of Surgery (Day of Procedure), Routine 0717 (Given - Provid er: Haley Issa RN) documented in this encounter Care Teams Truck Driver'S Offsider Relationship Specialty Start Date End Date Adwoa Smith APRN PCP - General 05/04/10 01/06/20 documented as of this encounter
--- OUTSIDE RECORDS SUMMARY | 2024-01-19 18:51 | XMS_ITS | Continuity of Care Document ---
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 Name Role Phone DULCE SALGUERO Primary Care Physician [phone] Encounter [facility] NBR [id number] Date(s): 01/12/24 - 01/12/24 [facility] Ambulatory [facility] [address], [place] [address] Encounter Diagnosis Elevated liver enzymes(Discharge Diagnosis) - 01/12/24 Steatosis of liver(Discharge Diagnosis) - 01/12/24 Diarrhea(Discharge Diagnosis) - 01/12/24 Discharge Disposition: Home or Self Care Attending Physician: Tarah Cross APRN Referring Physician: DULCE SALGUERO Allergies, Adverse Reactions, Alerts Substance Reaction Severity Status Lexapro Moderate Active Chantix Moderate Active Assessment and Plan Extracted from: Title:Office Visit Note-GI Author:Tarah Cross APRN Date:01/12/24 1.??Elevated liver enzymes?? R74.8 ??Patient??has??had as much as??6??alcoholic beverages per day.?? Has decreased to 2/week.?? No known liver disease??or a family history of liver disease.?? Labs ordered to rule out hemochromatosis, viral and autoimmune hepatitis.?? I will see patient in 2 weeks to discuss findings and make further recommendations.?? Labs ordered to??evaluate??for cirrhosis??and immunity to hepatitis A and B.?? Advised to avoid alcohol use at this time. Ordered: Actin (Smooth Muscle) Antibody LC, Blood, Routine, 01/12/24, Once, Lab Collect, Elevated liver enzymes Steatosis of liver Diarrhea, Order for future visit Alk Phos Isoenzyme LC, Blood, Routine, 01/12/24, Once, Lab Collect, Elevated liver enzymes Steatosis of liver Diarrhea, Order for future visit, N [id number]-Dzlcyrdbnto, Serum LC, Blood, Routine, 01/12/24, Once, Lab Collect, Elevated liver enzymes Steatosis of liver Diarrhea, Order for future visit KRISTY w/Reflex LC, Blood, Routine, 01/12/24, Once, Lab Collect, Elevated liver enzymes Steatosis of liver Diarrhea, Order for future visit CBC w/ Diff, Blood, Routine, 01/12/24, Once, Lab Collect, Elevated liver enzymes Steatosis of liver Diarrhea, Order for future visit Ceruloplasmin LC, Blood, Routine, 01/12/24, Once, Lab Collect, Elevated liver enzymes Steatosis of liver Diarrhea, Order for future visit Comprehensive Metabolic Panel, Blood, Routine, 01/12/24, Once, Lab Collect, Elevated liver enzymes Steatosis of liver Diarrhea, Order for future visit Ferritin, Blood, Routine, 01/12/24, Once, Lab Collect, Elevated liver enzymes Steatosis of liver Diarrhea, Order for future visit Follow-up Appointment Request [email or web address], *Est. 01/26/24 +/- 2 days, Future Order, f/u fatty liver and diarrhea, In Approximately, [facility] Gastroenterology HBsAg Screen LC, Blood, Routine, 01/12/24, Once, Lab Collect, Elevated liver enzymes Steatosis of liver Diarrhea, Order for future visit HCV Antibody [place] to Quant PCR and Genotyping [id number] LC, Blood, Routine, 01/12/24, Once, Lab Collect, Elevated liver enzymes Steatosis of liver Diarrhea, Order for future visit Hep A Ab, Total LC, Blood, Routine, 01/12/24, Once, Lab Collect, Elevated liver enzymes Steatosis of liver Diarrhea, Order for future visit Hep B Core Ab, Tot LC, Blood, Routine, 01/12/24, Once, Lab Collect, Elevated liver enzymes Steatosis of liver Diarrhea, Order for future visit Hepatitis B Surf Ab Quant LC, Blood, Routine, 01/12/24, Once, Lab Collect, Elevated liver enzymes Steatosis of liver Diarrhea, Order for future visit Iron Panel, Blood, Routine, 01/12/24, Once, Lab Collect, Elevated liver enzymes Steatosis of liver Diarrhea, Order for future visit Liver-Kidney Microsomal Ab LC, Blood, Routine, 01/12/24, Once, Lab Collect, Elevated liver enzymes Steatosis of liver Diarrhea, Order for future visit Mitochondrial (M2) Antibody LC, Blood, Routine, 01/12/24, Once, Lab Collect, Elevated liver enzymes Steatosis of liver Diarrhea, Order for future visit Vitamin B12 & Folate Level, Blood, Routine, 01/12/24, Once, Lab Collect, Elevated liver enzymes Steatosis of liver Diarrhea, Order for future visit ?? 2.??Steatosis of liver??K76.0 ??As above. Ordered: Actin (Smooth Muscle) Antibody LC, Blood, Routine, 01/12/24, Once, Lab Collect, Elevated liver enzymes Steatosis of liver Diarrhea, Order for future visit Alk Phos Isoenzyme LC, Blood, Routine, 01/12/24, Once, Lab Collect, Elevated liver enzymes Steatosis of liver Diarrhea, Order for future visit, N Kuhym-[id number], Serum LC, Blood, Routine, 01/12/24, Once, Lab Collect, Elevated liver enzymes Steatosis of liver Diarrhea, Order for future visit KRISTY w/Reflex LC, Blood, Routine, 01/12/24, Once, Lab Collect, Elevated liver enzymes Steatosis of liver Diarrhea, Order for future visit CBC w/ Diff, Blood, Routine, 01/12/24, Once, Lab Collect, Elevated liver enzymes Steatosis of liver Diarrhea, Order for future visit Ceruloplasmin LC, Blood, Routine, 01/12/24, Once, Lab Collect, Elevated liver enzymes Steatosis of liver Diarrhea, Order for future visit Comprehensive Metabolic Panel, Blood, Routine, 01/12/24, Once, Lab Collect, Elevated liver enzymes Steatosis of liver Diarrhea, Order for future visit Ferritin, Blood, Routine, 01/12/24, Once, Lab Collect, Elevated liver enzymes Steatosis of liver Diarrhea, Order for future visit Follow-up Appointment Request [email or web address], *Est. 01/26/24 +/- 2 days, Future Order, f/u fatty liver and diarrhea, In Approximately, [facility] Gastroenterology HBsAg Screen LC, Blood, Routine, 01/12/24, Once, Lab Collect, Elevated liver enzymes Steatosis of liver Diarrhea, Order for future visit HCV Antibody [place] to Quant PCR and Genotyping [id number] LC, Blood, Routine, 01/12/24, Once, Lab Collect, Elevated liver enzymes Steatosis of liver Diarrhea, Order for future visit Hep A Ab, Total LC, Blood, Routine, 01/12/24, Once, Lab Collect, Elevated liver enzymes Steatosis of liver Diarrhea, Order for future visit Hep B Core Ab, Tot LC, Blood, Routine, 01/12/24, Once, Lab Collect, Elevated liver enzymes Steatosis of liver Diarrhea, Order for future visit Hepatitis B Surf Ab Quant LC, Blood, Routine, 01/12/24, Once, Lab Collect, Elevated liver enzymes Steatosis of liver Diarrhea, Order for future visit Iron Panel, Blood, Routine, 01/12/24, Once, Lab Collect, Elevated liver enzymes Steatosis of liver Diarrhea, Order for future visit Liver-Kidney Microsomal Ab LC, Blood, Routine, 01/12/24, Once, Lab Collect, Elevated liver enzymes Steatosis of liver Diarrhea, Order for future visit Mitochondrial (M2) Antibody LC, Blood, Routine, 01/12/24, Once, Lab Collect, Elevated liver enzymes Steatosis of liver Diarrhea, Order for future visit Vitamin B12 & Folate Level, Blood, Routine, 01/12/24, Once, Lab Collect, Elevated liver enzymes Steatosis of liver Diarrhea, Order for future visit ?? 3.??Diarrhea??R19.7 ??Patient with chronic diarrhea for years.?? In part related to alcohol use. ??Advised to avoid alcohol.?? Labs ordered to rule out celiac disease and??calprotectin to rule out colitis. ??No family history of colon cancer to suggest colonoscopy and no red flag symptoms at this time.?? Symptoms may be functional in nature. ??I will see patient 2 weeks to discuss findings and make further recommendations. Ordered: Actin (Smooth Muscle) Antibody LC, Blood, Routine, 01/12/24, Once, Lab Collect, Elevated liver enzymes Steatosis of liver Diarrhea, Order for future visit Alk Phos Isoenzyme LC, Blood, Routine, 01/12/24, Once, Lab Collect, Elevated liver enzymes Steatosis of liver Diarrhea, Order for future visit, N Nqopo-1-Jmnqkqxolwm, Serum LC, Blood, Routine, 01/12/24, Once, Lab Collect, Elevated liver enzymes Steatosis of liver Diarrhea, Order for future visit KRISTY w/Reflex LC, Blood, Routine, 01/12/24, Once, Lab Collect, Elevated liver enzymes Steatosis of liver Diarrhea, Order for future visit Calprotectin, Fecal LC, Stool, Routine Collect, 01/12/24, Once, Nurse collect, Print Label, Diarrhea, Order for future visit CBC w/ Diff, Blood, Routine, 01/12/24, Once, Lab Collect, Elevated liver enzymes Steatosis of liver Diarrhea, Order for future visit Celiac Disease Comprehensive LC, Blood, Routine, 01/12/24, Once, Lab Collect, Diarrhea, Order for future visit Ceruloplasmin LC, Blood, Routine, 01/12/24, Once, Lab Collect, Elevated liver enzymes Steatosis of liver Diarrhea, Order for future visit Comprehensive Metabolic Panel, Blood, Routine, 01/12/24, Once, Lab Collect, Elevated liver enzymes Steatosis of liver Diarrhea, Order for future visit Ferritin, Blood, Routine, 01/12/24, Once, Lab Collect, Elevated liver enzymes Steatosis of liver Diarrhea, Order for future visit Follow-up Appointment Request [email or web address], *Est. 01/26/24 +/- 2 days, Future Order, f/u fatty liver and diarrhea, In Approximately, [facility] Gastroenterology HBsAg Screen LC, Blood, Routine, 01/12/24, Once, Lab Collect, Elevated liver enzymes Steatosis of liver Diarrhea, Order for future visit HCV Antibody [place] to Quant PCR and Genotyping [id number] LC, Blood, Routine, 01/12/24, Once, Lab Collect, Elevated liver enzymes Steatosis of liver Diarrhea, Order for future visit Hep A Ab, Total LC, Blood, Routine, 01/12/24, Once, Lab Collect, Elevated liver enzymes Steatosis of liver Diarrhea, Order for future visit Hep B Core Ab, Tot LC, Blood, Routine, 01/12/24, Once, Lab Collect, Elevated liver enzymes Steatosis of liver Diarrhea, Order for future visit Hepatitis B Surf Ab Quant LC, Blood, Routine, 01/12/24, Once, Lab Collect, Elevated liver enzymes Steatosis of liver Diarrhea, Order for future visit Iron Panel, Blood, Routine, 01/12/24, Once, Lab Collect, Elevated liver enzymes Steatosis of liver Diarrhea, Order for future visit Liver-Kidney Microsomal Ab LC, Blood, Routine, 01/12/24, Once, Lab Collect, Elevated liver enzymes Steatosis of liver Diarrhea, Order for future visit Mitochondrial (M2) Antibody LC, Blood, Routine, 01/12/24, Once, Lab Collect, Elevated liver enzymes Steatosis of liver Diarrhea, Order for future visit Vitamin B12 & Folate Level, Blood, Routine, 01/12/24, Once, Lab Collect, Elevated liver enzymes Steatosis of liver Diarrhea, Order for future visit ?? 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 Future Appointments Future Scheduled Tests Laboratory* Calprotectin, Fecal LC 01/12/24 Functional Status 01/12/24 Other exposure to Infectious Disease Non e Medications chlorthalidone 25 mg oral tablet TAKE ONE TABLET BY MOUTH EVERY DAY Start Date: 01/05/24 Status: Ordered clonazePAM 0.5 mg oral tablet TAKE ONE TABLET BY MOUTH ABOUT 30 MIN PRIOR TO ARRIVING OR UPON ARRIVING, AT AIRPORT, CAN REPEAT IN4-6 HOURS IF NEEDED Start Date: 01/05/24 Status: Ordered loratadine 10 mg oral tablet 10 mg = 1 tab, Oral, Daily, # 30 tab, 0 Refill(s) Start Date: 01/05/24 Status: Ordered losartan 50 mg oral tablet TAKE ONE TABLET BY MOUTH EVERY DAY Start Date: 01/05/24 Status: Ordered Mirena 52 mg intrauteral device 0 Refill(s) Start Date: 01/05/24 Status: Ordered propranolol 10 mg oral tablet TAKE ONE TABLET BY MOUTH EVERY DAY IF NEEDED FOR ANXIETY Start Date: 01/05/24 Status: Ordered Problem List Condition Confirmation Course Effective Dates Status Health St atus Informant Anxiety disorder Confirmed Active Diarrhea Confirmed Active Headache Confirmed Active HTN (hypertension) Confirmed Active Elevated liver enzymes Confirmed Active Steatosis of liver Confirmed Active Stomatitis Confirmed Active Vital Signs Most recent to oldest [Reference Range]: 1 Apical Heart Rate [60-100 bpm] 75 bpm (01/12/24 11:04 AM) Blood Pressure [90-140/60-90 mmHg] 139/8 5mmHg (01/12/24 11:04 AM) Mean Arterial Pressure, Cuff [65-140 mmH g] 103 mmHg (01/12/24 11:04 AM) Weight 83.46 kg (01/12/24 11:04 AM) Weight Measured (lbs) 183.998 lb (01/12/24 11:04 AM) Weight Dosing 83.460 kg (01/12/24 11:04 AM) [place] Body Weight Calculated 59.3 kg (01/12/24 11:04 AM) Height 167.64 cm (01/12/24 11:04 AM) Height/Length Measured (inches) 66 inch (01/12/24 11:04 AM) BSA Measured 1.97 m2 (01/12/24 11:04 AM) Body Mass Index 29.7 kg/m2 (01/12/24 11:04 AM) Social History Social History Type Response Tobacco Current everyday tob acco user Tobacco Use:. 24 year(s). Sex Physician Outpatient Note * Tarah Piette, MAKAYLA: PERFORM Event Display: Office Clinic Note Physician Authored Date: [id number] JUSTYNA CECILIA Lois :1980 Age:43 years Sex:Female Visit Date:01/12/2024 Primary Care Physician: DULCE SALGUERO Chief Complaint Fatty liver History of Present Illness Patient is a 43-year-old female here today at the request of Dr. Salguero??for fatty liver disease.?? This is an initial consult. Patient reports that She Was Told She Had??Any Liver Abnormality Was Able This Year.?? She States??She Was Drinking. ??We Recommends??an 8-6.8.?? Since Being Told Her Liver Functions Were Elevated??She Has Had Approximately 2/Week.?? She Has Had No Jaundice. ??No Abdominal Pain, Nausea or Vomiting. ??Denies Constipation. ??Denies Any Melena or Hematochezia. ??Weight and Appetite Are Stable.?? Denies Any Pyrosis or Dyspepsia. ??Denies Dysphagia or Globus Sensation.??She Has Diarrhea 2 Times per Day and Has Done so for Years.?? She Has Not Had Any Workup. ?? She still has her gallbladder. ?? Labs: -08/11/2023 complete metabolic panel with alkaline phosphatase 118, sodium 134,??ALT 58, ALT 61.?? Hemoglobin hematocrit were 15.1 and 44.3 respectively. -1424 alkaline phosphatase 120, AST??51, ALT 61.?? Otherwise unremarkable. ??TSH normal 1.5-week. -11/28/2023 ALT 63,AST 64, hepatitis B surface antigen negative, hepatitis C??antibodies negative, hepatitis A antibodies negative,??hepatitis??B core antibody is negative. ?? Imaging: -Abdominal ultrasound 12/11/2023 showed hepatomegaly??and fatty liver. ?? Patient denies any family history of any gastrointestinal cancers, inflammatory bowel disease orceliac disease. ??Denies any family history of??liver disease. Review of Systems Pertinent positives and negatives are discussed in HPI. Physical Exam Vitals & Measurements HR:??75??(Apical)?? BP:??139/85?? SpO2:??99%?? HT:??167.64??cm?? WT:??83.46??kg?? BMI:??29.7?? BSA:??1.97?? General: Well-nourished well-developed female??in no acute distress. HEENT: Head is normocephalic, trachea midline and no cervical lymphadenopathy. ??Sclera are clear. Respiratory: Respirations are even and unlabored. ??Lungs are clear to auscultation. Cardiovascular: Regular rate and rhythm with S1 and S2. Abdomen: Positive bowel sounds x4 quadrants, no masses, no guarding, no tenderness. ??No hepatosplenomegaly. ??Abdomen is soft. Skin: Warm, dry, and pink. ??No spider angiomata, palmar erythema or gynecomastia. Neurological: Alert and oriented x3, speech is clear and gait is steady. Psychological: Pleasant, calm and cooperative. Assessment/Plan 1.??Elevated liver enzymes??R74.8 ??Patient??has??had as much as??6??alcoholic beverages per day.?? Has decreased to 2/week.?? No known liver disease??or a family history of liver disease.?? Labs ordered to rule out hemochromatosis, viral and autoimmune hepatitis.?? I will see patient in 2 weeks to discuss findings and make further recommendations.?? Labs ordered to??evaluate??for cirrhosis??and immunity to hepatitis A and B.?? Advised to avoid alcohol use at this time. Ordered: Actin (Smooth Muscle) Antibody LC, Blood, Routine, 01/12/24, Once, Lab Collect, Elevated liver enzymes Steatosis of liver Diarrhea, Order for future visit Alk Phos Isoenzyme LC, Blood, Routine, 01/12/24, Once, Lab Collect, Elevated liver enzymes Steatosis of liver Diarrhea, Order for future visit, N Zyhki-2-Luoarvsjwre, Serum LC, Blood, Routine, 01/12/24, Once, Lab Collect, Elevated liver enzymes Steatosis of liver Diarrhea, Order for future visit KRISTY w/Reflex LC, Blood, Routine, 01/12/24, Once, Lab Collect, Elevated liver enzymes Steatosis ofliver Diarrhea, Order for future visit CBC w/ Diff, Blood, Routine, 01/12/24, Once, Lab Collect, Elevated liver enzymes Steatosis of liver Diarrhea, Order for future visit Ceruloplasmin LC, Blood, Routine, 01/12/24, Once, Lab Collect, Elevated liver enzymes Steatosis of liver Diarrhea, Order for future visit Comprehensive Metabolic Panel, Blood, Routine, 01/12/24, Once, Lab Collect, Elevated liver enzymes Steatosis of liver Diarrhea, Order for future visit Ferritin, Blood, Routine, 01/12/24, Once, Lab Collect, Elevated liver enzymes Steatosis of liver Diarrhea, Order for future visit Follow-up Appointment Request [email or web address], *Est. 01/26/24 +/- 2 days, Future Order, f/u fatty liver anddiarrhea, In Approximately, [facility] Gastroenterology HBsAg Screen LC, Blood, Routine, 01/12/24, Once, Lab Collect, Elevated liver enzymes Steatosis ofliver Diarrhea, Order for future visit HCV Antibody [place] to Quant PCR and Genotyping [id number] LC, Blood, Routine, 01/12/24, Once, Lab Collect, Elevated liver enzymes Steatosis of liver Diarrhea, Order for future visit Hep A Ab, Total LC, Blood, Routine, 01/12/24, Once, Lab Collect, Elevated liver enzymes Steatosisof liver Diarrhea, Order for future visit Hep B Core Ab, Tot LC, Blood, Routine, 01/12/24, Once, Lab Collect, Elevated liver enzymes Steatosis of liver Diarrhea, Order for future visit Hepatitis B Surf Ab Quant LC, Blood, Routine, 01/12/24, Once, Lab Collect, Elevated liver enzymes Steatosis of liver Diarrhea, Order for future visit Iron Panel, Blood, Routine, 01/12/24, Once, Lab Collect, Elevated liver enzymes Steatosis of liver Diarrhea, Order for future visit Liver-Kidney Microsomal Ab LC, Blood, Routine, 01/12/24, Once, Lab Collect, Elevated liver enzymes Steatosis of liver Diarrhea, Order for future visit Mitochondrial (M2) Antibody LC, Blood, Routine, 01/12/24, Once, Lab Collect, Elevated liver enzymes Steatosis of liver Diarrhea, Order for future visit Vitamin B12 & Folate Level, Blood, Routine, 01/12/24, Once, Lab Collect, Elevated liver enzymes Steatosis of liver Diarrhea, Order for future visit ?? 2.??Steatosis of liver??K76.0 ??As above. Ordered: Actin (Smooth Muscle) Antibody LC, Blood, Routine, 01/12/24, Once, Lab Collect, Elevated liver enzymes Steatosis of liver Diarrhea, Order for future visit Alk Phos Isoenzyme LC, Blood, Routine, 01/12/24, Once, Lab Collect, Elevated liver enzymes Steatosis of liver Diarrhea, Order for future visit, N Iiylo-0-Xxerxwyndiv, Serum LC, Blood, Routine, 01/12/24, Once, Lab Collect, Elevated liver enzymes Steatosis of liver Diarrhea, Order for future visit KRISTY w/Reflex LC, Blood, Routine, 01/12/24, Once, Lab Collect, Elevated liver enzymes Steatosis ofliver Diarrhea, Order for future visit CBC w/ Diff, Blood, Routine, 01/12/24, Once, Lab Collect, Elevated liver enzymes Steatosis of liver Diarrhea, Order for future visit Ceruloplasmin LC, Blood, Routine, 01/12/24, Once, Lab Collect, Elevated liver enzymes Steatosis of liver Diarrhea, Order for future visit Comprehensive Metabolic Panel, Blood, Routine, 01/12/24, Once, Lab Collect, Elevated liver enzymes Steatosis of liver Diarrhea, Order for future visit Ferritin, Blood, Routine, 01/12/24, Once, Lab Collect, Elevated liver enzymes Steatosis of liver Diarrhea, Order for future visit Follow-up Appointment Request [email or web address], *Est. 01/26/24 +/- 2 days, Future Order, f/u fatty liver anddiarrhea, In Approximately, [facility] Gastroenterology HBsAg Screen LC, Blood, Routine, 01/12/24, Once, Lab Collect, Elevated liver enzymes Steatosis ofliver Diarrhea, Order for future visit HCV Antibody [place] to Quant PCR and Genotyping [id number] LC, Blood, Routine, 01/12/24, Once, Lab Collect, Elevated liver enzymes Steatosis of liver Diarrhea, Order for future visit Hep A Ab, Total LC, Blood, Routine, 01/12/24, Once, Lab Collect, Elevated liver enzymes Steatosisof liver Diarrhea, Order for future visit Hep B Core Ab, Tot LC, Blood, Routine, 01/12/24, Once, Lab Collect, Elevated liver enzymes Steatosis of liver Diarrhea, Order for future visit Hepatitis B Surf Ab Quant LC, Blood, Routine, 01/12/24, Once, Lab Collect, Elevated liver enzymes Steatosis of liver Diarrhea, Order for future visit Iron Panel, Blood, Routine, 01/12/24, Once, Lab Collect, Elevated liver enzymes Steatosis of liver Diarrhea, Order for future visit Liver-Kidney Microsomal Ab LC, Blood, Routine, 01/12/24, Once, Lab Collect, Elevated liver enzymes Steatosis of liver Diarrhea, Order for future visit Mitochondrial (M2) Antibody LC, Blood, Routine, 01/12/24, Once, Lab Collect, Elevated liver enzymes Steatosis of liver Diarrhea, Order for future visit Vitamin B12 & Folate Level, Blood, Routine, 01/12/24, Once, Lab Collect, Elevated liver enzymes Steatosis of liver Diarrhea, Order for future visit ?? 3.??Diarrhea??R19.7 ??Patient with chronic diarrhea for years.?? In part related to alcohol use. ??Advised to avoid alcohol.?? Labs ordered to rule out celiac disease and??calprotectin to rule out colitis. ??No family history of colon cancer to suggest colonoscopy and no red flag symptoms at this time.?? Symptoms may be functional in nature. ??I will see patient 2 weeks to discuss findings and make further recommendations. Ordered: Actin (Smooth Muscle) Antibody LC, Blood, Routine, 01/12/24, Once, Lab Collect, Elevated liver enzymes Steatosis of liver Diarrhea, Order for future visit Alk Phos Isoenzyme LC, Blood, Routine, 01/12/24, Once, Lab Collect, Elevated liver enzymes Steatosis of liver Diarrhea, Order for future visit, N Bbuuk-0-Qxcuzxkhlke, Serum LC, Blood, Routine, 01/12/24, Once, Lab Collect, Elevated liver enzymes Steatosis of liver Diarrhea, Order for future visit KRISTY w/Reflex LC, Blood, Routine, 01/12/24, Once, Lab Collect, Elevated liver enzymes Steatosis ofliver Diarrhea, Order for future visit Calprotectin, Fecal LC, Stool, Routine Collect, 01/12/24, Once, Nurse collect, Print Label, Diarrhea, Order for future visit CBC w/ Diff, Blood, Routine, 01/12/24, Once, Lab Collect, Elevated liver enzymes Steatosis of liver Diarrhea, Order for future visit Celiac Disease Comprehensive LC, Blood, Routine, 01/12/24, Once, Lab Collect, Diarrhea, Order for future visit Ceruloplasmin LC, Blood, Routine, 01/12/24, Once, Lab Collect, Elevated liver enzymes Steatosis of liver Diarrhea, Order for future visit Comprehensive Metabolic Panel, Blood, Routine, 01/12/24, Once, Lab Collect, Elevated liver enzymes Steatosis of liver Diarrhea, Order for future visit Ferritin, Blood, Routine, 01/12/24, Once, Lab Collect, Elevated liver enzymes Steatosis of liver Diarrhea, Order for future visit Follow-up Appointment Request [email or web address], *Est. 01/26/24 +/- 2 days, Future Order, f/u fatty liver anddiarrhea, In Approximately, [facility] Gastroenterology HBsAg Screen LC, Blood, Routine, 01/12/24, Once, Lab Collect, Elevated liver enzymes Steatosis ofliver Diarrhea, Order for future visit HCV Antibody [place] to Quant PCR and Genotyping [id number] LC, Blood, Routine, 01/12/24, Once, Lab Collect, Elevated liver enzymes Steatosis of liver Diarrhea, Order for future visit Hep A Ab, Total LC, Blood, Routine, 01/12/24, Once, Lab Collect, Elevated liver enzymes Steatosisof liver Diarrhea, Order for future visit Hep B Core Ab, Tot LC, Blood, Routine, 01/12/24, Once, Lab Collect, Elevated liver enzymes Steatosis of liver Diarrhea, Order for future visit Hepatitis B Surf Ab Quant LC, Blood, Routine, 01/12/24, Once, Lab Collect, Elevated liver enzymes Steatosis of liver Diarrhea, Order for future visit Iron Panel, Blood, Routine, 01/12/24, Once, Lab Collect, Elevated liver enzymes Steatosis of liver Diarrhea, Order for future visit Liver-Kidney Microsomal Ab LC, Blood, Routine, 01/12/24, Once, Lab Collect, Elevated liver enzymes Steatosis of liver Diarrhea, Order for future visit Mitochondrial (M2) Antibody LC, Blood, Routine, 01/12/24, Once, Lab Collect, Elevated liver enzymes Steatosis of liver Diarrhea, Order for future visit Vitamin B12 & Folate Level, Blood, Routine, 01/12/24, Once, Lab Collect, Elevated liver enzymes Steatosis of liver Diarrhea, Order for future visit ?? 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 Future Orders Actin (Smooth Muscle) Antibody LC, Blood, Routine, 01/12/24, Once, Lab Collect, Elevated liver enzymes Steatosis of liver Diarrhea, Order for future visit Alk Phos Isoenzyme LC, Blood, Routine, 01/12/24, Once, Lab Collect, Elevated liver enzymes Steatosis of liver Diarrhea, Order for future visit, N [id number], Serum LC, Blood, Routine, 01/12/24, Once, Lab Collect, Elevated liver enzymes Steatosis of liver Diarrhea, Order for future visit KRISTY w/Reflex LC, Blood, Routine, 01/12/24, Once, Lab Collect, Elevated liver enzymes Steatosis ofliver Diarrhea, Order for future visit Calprotectin, Fecal LC, Stool, Routine Collect, 01/12/24, Once, Nurse collect, Print Label, Diarrhea, Order for future visit CBC w/ Diff, Blood, Routine, 01/12/24, Once, Lab Collect, Elevated liver enzymes Steatosis of liver Diarrhea, Order for future visit Celiac Disease Comprehensive LC, Blood, Routine, 01/12/24, Once, Lab Collect, Diarrhea, Order for future visit Ceruloplasmin LC, Blood, Routine, 01/12/24, Once, Lab Collect, Elevated liver enzymes Steatosis of liver Diarrhea, Order for future visit Comprehensive Metabolic Panel, Blood, Routine, 01/12/24, Once, Lab Collect, Elevated liver enzymes Steatosis of liver Diarrhea, Order for future visit Ferritin, Blood, Routine, 01/12/24, Once, Lab Collect, Elevated liver enzymes Steatosis of liver Diarrhea, Order for future visit HBsAg Screen LC, Blood, Routine, 01/12/24, Once, Lab Collect, Elevated liver enzymes Steatosis ofliver Diarrhea, Order for future visit HCV Antibody [place] to Quant PCR and Genotyping [id number] LC, Blood, Routine, 01/12/24, Once, Lab Collect, Elevated liver enzymes Steatosis of liver Diarrhea, Order for future visit Hep A Ab, Total LC, Blood, Routine, 01/12/24, Once, Lab Collect, Elevated liver enzymes Steatosisof liver Diarrhea, Order for future visit Hep B Core Ab, Tot LC, Blood, Routine, 01/12/24, Once, Lab Collect, Elevated liver enzymes Steatosis of liver Diarrhea, Order for future visit Hepatitis B Surf Ab Quant LC, Blood, Routine, 01/12/24, Once, Lab Collect, Elevated liver enzymes Steatosis of liver Diarrhea, Order for future visit Iron Panel, Blood, Routine, 01/12/24, Once, Lab Collect, Elevated liver enzymes Steatosis of liver Diarrhea, Order for future visit Liver-Kidney Microsomal Ab LC, Blood, Routine, 01/12/24, Once, Lab Collect, Elevated liver enzymes Steatosis of liver Diarrhea, Order for future visit Mitochondrial (M2) Antibody LC, Blood, Routine, 01/12/24, Once, Lab Collect, Elevated liver enzymes Steatosis of liver Diarrhea, Order for future visit Vitamin B12 & Folate Level, Blood, Routine, 01/12/24, Once, Lab Collect, Elevated liver enzymes Steatosis of liver Diarrhea, Order for future visit Problem List/Past Medical History Ongoing Anxiety disorder Diarrhea Elevated liver enzymes Headache HTN (hypertension) Steatosis of liver Stomatitis Tobacco user Historical No qualifying data Medications chlorthalidone 25 mg oral tablet clonazePAM 0.5 mg oral tablet loratadine 10 mg oral tablet, 10 mg= 1 tab, Oral, Daily losartan 50 mg oral tablet Mirena 52 mg intrauteral device propranolol 10 mg oral tablet Allergies Chantix Lexapro Social History Alcohol Current, 1-2 times per week Electronic Cigarette/Vaping Electronic Cigarette Use: Never. Substance Use Never Tobacco Current everyday tobacco user Tobacco Use:. 24 year(s). Family History Heart attack: Father. Electronically Signed on 01/12/2024 11:40 EDT Tarah Cross APRN Patient Care team information Care Team Personnel Name: DULCE SALGUERO Position: No Access Member Role: Primary Care Physician Address: Address: [address] [place] [id number]
--- OUTSIDE RECORDS SUMMARY | 2024-01-19 18:51 | XMS_ITS | Continuity of Care Document ---
Author Organization [facility] Address [address] [place] [address] Care Team Providers Care Bar Host Name Role Phone DULCE ALLEN Primary Care Physician [phone] Encounter [facility] FIN NBR [id number] Date(s): 01/12/24 - 01/12/[address] [address] Encounter Diagnosis Elevated liver enzymes(Discharge Diagnosis) - 01/12/24 Steatosis of liver(Discharge Diagnosis) - 01/12/24 Diarrhea(Discharge Diagnosis) - 01/12/24 Discharge Disposition: Home or Self Care Attending Physician: Tarah Cross APRN Admitting Physician: Tarah Cross APRN Allergies, Adverse Reactions, Alerts Substance Reaction Severity Status Lexapro Moderate Active Chantix Moderate Active Assessment and Plan Future Appointments Diagnostic Tests Pending * Mitochondrial (M2) Antibody LC 01/12/24 * Hepatitis B Surf Ab Quant LC 01/12/24 * HBsAg Screen LC 01/12/24 * Actin (Smooth Muscle) Antibody LC 01/12/24 * Hep A Ab, Total LC 01/12/24 * Hep B Core Ab, Tot LC 01/12/24 * Liver-Kidney Microsomal Ab LC 01/12/24 * KRISTY w/Reflex LC 01/12/24 * HCV Antibody [place] to Quant PCR and Genotyping [id number] LC 01/12/24 Future Scheduled Tests Laboratory* Calprotectin, Fecal LC 01/12/24 Medications chlorthalidone 25 mg oral tablet TAKE [...] of liver Confirmed Active Stomatitis Confirmed Active Results Laboratory List Name Date Alk Phos Isoenzyme LC 01/12/24 [id number], Serum LC 01/12/24 CBC w/ Diff 01/12/24 Ceruloplasmin LC 01/12/24 Comprehensive Metabolic Panel 01/12/24 Ferritin 01/12/24 Iron Panel 01/12/24 Vitamin B12 & Folate Level 01/12/24 Automated Diff 01/12/24 Most recent to oldest [Reference Range]: 1 WBC [4.8-10.8 K/mcL] 8.1 K/mcL (01/12/24 11:45 AM) RBC [4.20-5.40 Million/mcL] 4.86 Million /mcL (01/12/24 11:45 AM) Neutro Auto [42.2-75.2 %] 60.8 % (01/12/24 11:45 AM) Lymph Auto [20.5-51.1 %] 29.5 % (01/12/24 11:45 AM) [place] Auto [1.7-9.3 %] 6.7 % (01/12/24 11:45 AM) Basophil Auto [0.0-0.8 %] 1.1 % *HI* (01/12/24 11:45 AM) BUN [7-25 mg/dL] 7 mg/dL (01/12/24 11:45 AM) Glucose Level [70-109 mg/dL] 94 mg/dL (01/12/24 11:45 AM) Potassium Level [3.5-5.1 mmol/L] 4.0 mmo l/L (01/12/24 11:45 AM) Baso Absolute [0.0-0.2 K/mcL] 0.1 K/mcL (01/12/24 11:45 AM) MCV [81.0-99.0 fL] 89.0 fL (01/12/24 11:45 AM) AST [13-39 IntlUnit/L] 37 IntlUnit/L (01/12/24 11:45 AM) ALT [7-52 IntlUnit/L] 33 IntlUnit/L (01/12/24 11:45 AM) MCHC [32.0-37.0 g/dL] 34.3 g/dL (01/12/24 11:45 AM) Osmolality [275-295 mOsm/kg] 268 mOsm/kg *LOW* (01/12/24 11:45 AM) Sodium Level [136-145 mmol/L] 135 mmol/L *LOW* (01/12/24 11:45 AM) Folate Level [>=5.9 ng/mL] 13.2 ng/mL (01/12/24 11:45 AM) Lymph Absolute [1.2-3.4 K/mcL] 2.4 K/mcL (01/12/24 11:45 AM) Hct [37.0-47.0 %] 43.3 % (01/12/24 11:45 AM) Calcium Level [8.6-10.3 mg/dL] 10.4 mg/d L *HI* (01/12/24 11:45 AM) [place] Absolute [0.1-0.6 K/mcL] 0.5 K/mcL (01/12/24 11:45 AM) Albumin Level [3.5-5.7 g/dL] 4.8 g/dL (01/12/24 11:45 AM) Protein Total [6.4-8.9 g/dL] 8.0 g/dL (01/12/24 11:45 AM) Iron Sat [20-55 %] 27 % (01/12/24 11:45 AM) MCH [27.0-31.0 pg] 30.6 pg (01/12/24 11:45 AM) Neutro Absolute [1.4-6.5 K/mcL] 5.0 K/mc L (01/12/24 11:45 AM) Bilirubin Total [0.3-1.0 mg/dL] 0.4 mg/d L (01/12/24 11:45 AM) Hgb [12.0-16.0 g/dL] 14.9 g/dL (01/12/24 11:45 AM) Transferrin [203-362 mg/dL] 268 mg/dL (01/12/24 11:45 AM) B12 Level [180-914 pg/mL] 229 pg/mL (01/12/24 11:45 AM) Alk Phos [34-104 IntlUnit/L] 72 IntlUnit /L (01/12/24 11:45 AM) MPV [7.4-10.4 fL] 10.4 fL (01/12/24 11:45 AM) Ferritin Level [11.0-307.0 ng/mL] 168.0 ng/mL (01/12/24 11:45 AM) Platelets [130-400 K/mcL] 267 K/mcL (01/12/24 11:45 AM) CO2 [21-31 mmol/L] 23 mmol/L (01/12/24 11:45 AM) Eos Absolute [0.0-0.2 K/mcL] 0.2 K/mcL (01/12/24 11:45 AM) TIBC 375 *NA* (01/12/24 11:45 AM) Iron [50-212 mcg/dL] 102 mcg/dL (01/12/24 11:45 AM) Chloride Level [98-107 mmol/L] 101 mmol/ L (01/12/24 11:45 AM) RDW-CV [11.5-14.5 %] 12.9 % (01/12/24 11:45 AM) A/G Ratio [1.0-2.5 g/dL] 1.5 g/dL (01/12/24 11:45 AM) BUN/Creat Ratio [8.0-20.0] 11.7 (01/12/24 11:45 AM) Globulin [2.3-3.5 g/dL] 3.2 g/dL (01/12/24 11:45 AM) Ceruloplasmin LC [19.0-39.0 mg/dL] 33.8 mg/dL 1 *NA* (01/12/24 11:45 AM) Mqcqj-4-Iknhsusnkgq LC [101-187 mg/dL] 1 58 mg/dL 2 *NA* (01/12/24 11:45 AM) Patient Fasting? LC N (01/12/24 11:45 AM) Creatinine Level [0.60-1.20 mg/dL] 0.60 mg/dL (01/12/24 11:45 AM) Anion Gap [3.0-12.0] 11.0 (01/12/24 11:45 AM) Eos, Auto [0.00-3.00 %] 1.90 % (01/12/24 11:45 AM) eGFR CKD-EPI [>=60 mL/min/1.73 m2] 116 m L/min/1.73 m2 (01/12/24 11:45 AM) 1Result Comment: Performed At: [facility] [id number] Alex Bhakta MD Ph:[phone] 2Result Comment: Performed At: [facility] [id number] Alex Bhakta MD Ph:[phone] Social History Social History Type Response Tobacco Current everyday tob acco user Tobacco Use:. 24 year(s). Sex Patient Care team information Care Team Personnel Name: DULCE ALLEN Position: No Access Member Role: Primary Care Physician Address: Address: [address] [place] [id number]
--- OUTSIDE RECORDS SUMMARY | 2024-01-19 18:51 | XMS_ITS | Clinical Summary ---
Author Organization [facility] [place] [address] Care Team Providers Care Computed Tomography Scanner Operator Name Role Phone Kayla Salguero MD Primary Care Provider [phone] Allergies No known active allergies Medications Medication Sig Dispensed Refills Start Date End Date Status ibuprofen (ADVIL;MOTRIN) 200 mg Tablet Take 1-2 tablets by mouth every 6 hours as needed for Pain. 10/12/2017 Active Additional Information Patient not taking.Reported on 06/09/2020 acetaminophen (TYLENOL) 500 mg Tablet Take 1-2 tablets by mouth every 6 hours as needed for Pain. 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 Social History Tobacco Use Types Packs/Day Years Used Date Smoking Tobacco: Every Day Cigarettes Smokeless Tobacco: Never Tobacco Cessation:Ready to Q uit: Yes Alcohol Use Standard Drinks/Week Comments Yes 0 (1 standard drink = 0.6 oz pur e alcohol) social Sex and Gender Information Value Date Recorded Sex Assigned at Not on file Gender Identity Not on file Sexual Orientation Not on file Last Filed Vital Signs Vital Sign Reading Time Taken Comments Blood Pressure 127/79 02/02/2021 9:18 AM EDT Pulse 73 02/02/2021 9:18 AM EDT Temperature 36.4 ??C (97.5 ??F) 02/02/2021 9:18 AM ED T Respiratory Rate 16 02/02/2021 9:18 AM EDT Oxygen Saturation 99% 02/02/2021 9:18 AM EDT Inhaled Oxygen Concentration - - Weight 83.8 kg (184 lb 12.8 oz) 02/02/2021 9:18 AM EDT Height 167.6 cm (5' 5.98) 02/02/2021 9:18 AM ED T Body Mass Index 29.84 02/02/2021 9:18 AM EDT Plan of Treatment Health Maintenance Due Date Last Done Comments Pneumococcal Vaccine: At-Risk 5-64yrs (1 of 2 - PCV) 1 Lipid Screening 2000 Hepatitis B vaccine (0-59 yrs) (1) 2001 Tdap adult 2001 Tetanus vaccine 2001 HPV test 2012 PAP Smear 2012 Breast Cancer Share Decision Needed 2022 Breast Cancer screening 2022 Diabetes Screening (HgbA1C or Glucose) 2022 Covid-19 Vaccine (1 - season) 2023 Influenza (Flu) vaccine (1 o f 1 - Influenza standard series) 02/11/2024 HIV screen Completed 02/25/2016 Hepatitis C Screening Completed 02/25/2016 Procedures Procedure Name Priority Date/Time Associated Diagnosis Comments HIV SCREEN, 4TH GENERATION ([facility]/CGP/APD/NLH) Routine 02/25/2016 10:32 AM EDT Perianal condylomata HEPATITIS C ANTIBODY Routine 02/25/2016 10:32 AM EDT Perianal condylomata from Last 3 Months or Most Recently Relevant to Health Maintenance Results * Hepatitis C Antibody (02/25/2016 10:32 AM EDT) Hepatitis C Antibody Negative Negative [facility] Blood specimen (specimen) 02/25/2016 10:32 AM EDT 02/25/2016 10:41 AM EDT Narrative Resulting Agency Comment Spec In Lab Darnell Lemon MD CHEMISTRY ORDERABL ES [facility] [place] [address] * HIV Screen, 4th Generation (02/25/2016 10:32 AM EDT) HIV Ab/Ag Screen Negative Negative [facility] Comment: This 4th Generation HIV test screens for the presence of the HIV-1 p24 antigen as well as antibodies reactive against HIV-1 and HIV-2. A negative screen does not rule out an acute HIV infection. If acute HIV infection is suspected, testing should be repeated in 2 - 3 weeks or HIV nucleic acid testing performed. Blood specimen (specimen) 02/25/2016 10:32 AM EDT 02/25/2016 10:41 AM EDT Narrative Resulting Agency Comment Spec In Lab Darnell Lemon MD CHEMISTRY ORDERABL ES Performing Organization Address [facility]/ZIP Co de Phone Number [facility] [place] [address] from Last 3 Months or Most Recently Relevant to Health Maintenance Care Teams Computed Tomography Scanner Operator Relationship Specialty Start Date End Date Kayla Salguero MD [address] [place] [address] PCP - General Family Medicine 01/07/20
--- OUTSIDE RECORDS SUMMARY | 2024-01-19 18:51 | XMS_ITS | Encounter Summary ---
[place] [address] Care Team Providers Care Police Sergeant Name Role Phone Kayla Salguero MD Primary Care Provider [phone] Encounter Details Date Type Department Care Team (Late st Contact Info) Description 08/13/2020 Telephone [place] [address] Rosario Partida MD [facility] [place] [address] Social History Tobacco Use Types Packs/Day Years [...] Telephone Encounter - Rosario Partida MD - 08/13/2020 2:50 PM EST I spoke with Kerry on the phone and let her know about her pathology - condyloma - no high grade dysplasia. Will see her back in 6 months Rosario Partida MD [facility] FASCRS process improvement consultant Division of Colon and Rectal Surgery [facility] Pager [phone] documented in this encounter Plan of Treatment Not on file documented as of this encounter Visit Diagnoses Not on filedocumented in this encounter Care Teams Police Sergeant Relationship Specialty Start Date End Date Kayla Salguero MD [address] [place] [address] PCP - General Family Medicine 01/07/20 documented as of this encounter
--- OUTSIDE RECORDS SUMMARY | 2024-01-19 18:51 | XMS_ITS | Encounter Summary ---
[place] [address] Care Team Providers Care Motorized Squad Sergeant Name Role Phone Col[place]Adwoa ortiz SMALL BUSINESS SALES REPRESENTATIVE Primary Care Provider [phone] Encounter Details Date Type Department Care Team (Late st Contact Info) Description 06/03/2019 Telephone [place] [phone] Kerry Bazan RN Social History Tobacco Use Types Packs/Day Years [...] encounter Miscellaneous Notes * Telephone Encounter - Kerry Renee RN - 06/03/2019 4:20 PM EST From 06/26/18 visit: A/P: Kerry is a 38 yo woman with a history of AIN 1 and anal condyloma. She continues to have recurrence with excision and electrodesiccation. We discussed continuing with surveillance and office excision/electrodesiccation if continued recurrence, or trial of imiquimod to see if we can prevent recurrence or increase interval between recurrence. Patient phones today and states that she won't be able to get in until September. She also states that she never did the script for Aldara. She wonders if she could get a script now and do it until her appointment. Will forward to Dr. Partida. documented in this encounter Plan of Treatment Not on file documented as of this encounter Visit Diagnoses Not on filedocumented in this encounter Care Teams Motorized Squad Sergeant Relationship Specialty Start Date End Date Adwoa Smith APRN PCP - General 05/04/10 01/06/20 documented as of this encounter
--- OUTSIDE RECORDS SUMMARY | 2024-01-19 18:51 | XMS_ITS | Encounter Summary ---
Author Organization [facility] [place] [address] Care Team Providers Care Vault Maker Name Role Phone Kayla Salguero MD Primary Care Provider [phone] Reason for Visit * Reason Comments Follow-up Encounter Details Date Type Department Care Team (Late st Contact Info) Description 06/09/2020 11:00 AM EST Office Visit [place] [address] Rosario Partida MD [facility] [place] [address] Anal condyloma; Perianal condylomata Social History Tobacco Use Types [...] Sign Reading Time Taken Comments Blood Pressure 132/88 06/09/2020 10:39 AM EST Pulse 81 06/09/2020 10:39 AM EST Temperature 36.5 ??C (97.7 ??F) 06/09/2020 1 0:39 AM EST Respiratory Rate 16 06/09/2020 10:3 9 AM EST Oxygen Saturation 98% 06/09/2020 10: 39 AM EST Inhaled Oxygen Concentration - - Weight 89.3 kg (196 lb 12.8 oz) 020 10:39 AM EST Height - - Body Mass Index 31.76 02/20/2018 9:12 AM EDT documented in this encounter Progress Notes * Rosario Partida MD - 06/09/2020 11:00 AM EST Colorectal Surgery Follow Up HPI: Kerry returns today for follow up of her perianal condylomas. She was last seen 01/07/2020. She was noted to have recurrence of perianal condylomas after prior treatment with 25% podophyllin. Note, there were no intra-anal canal lesions. After discussing management options, she wished to try acourse of Imiquimod. She presents today for follow up. She reports that she never actually picked up the Imiquimod and has not had any treatment since her visit. She has not noted a significant change in the condylomas. BP 132/88 (BP Location (NBP): Right arm) Pulse 81 Temp 36.5 ??C (97.7 ??F) Resp 16 Wt 89.3 kg (196 lb 12.8 oz) SpO2 98% BMI 31.76 kg/m?? Body mass index is 31.76 kg/m??. Gen NAD The patient was examined in the prone shelley knife position with Shania assisting. There are multipleareas of condylomas- largest is about 1cm (posterior midline). The anus is closed. On digital rectal exam resting tone is normal and squeeze tone is normal. There is normal relaxation with valsalva. There are no masses. There is no gross blood. There is no tenderness to palpation. Anoscopy: The well lubricated anoscope was inserted into the anal canal and the entire anal canal and distal rectum were inspected. Findings include: no intra- anal condylomas, normal distal rectal mucosa, anal canal mucosa After discussing options including podophyllin, imiquimod, in office electrodessication, and OR forelectrodessication, Kerry wished to proceed with in-office electrodessication. Consent was reviewed and signed. Procedure Note: After cleaning the perianal skin with Hibiclens, the skin underlying each condyloma was injected with 1% lidocaine with epinephrine (total 6cc). The largest lesions were excised with scissors and sent for pathology. The smaller lesions and the base of the larger lesions were cauterized with electrocautery. There was minimal bleeding. The patient tolerated the procedure well. A smoke evacuator was used. Staff were wearing N95 masks. COREFO Responses 02/20/2018 06/26/2018 10/29/2019 01/07/2020 06/09/2020 Incontinence Scale 0 2.77 2.77 0 2.77 Social Impact Scale 5.55 8.33 5.55 8.33 5.55 Frequency Scale 12.5 0 12.5 12.5 12.5 Stool Releated Aspects 8.33 0 0 16.66 8.33 Medication Scale 0 8.33 0 0 16.66 Total COREFO Score 3.84 4.8 3.84 5.76 6.73 The COREFO questionnaire is a validated questionnaire with 27 questions to assess colorectal functional outcome. Patients are asked to consider the two week period prior before filling out the questionnaire. Category scores range from zero to 100. A total score is calculated from the categories above, also ranging from zero to 100. A higher score represents an increased level of functional disturbance. Assessment/Plan: Kerry Reddy is a 40 yo woman with perianal condyloma (recurrent). These were treated with excision and electrodessication in the office today. She will follow up in 8-16 weeks for re-evaluation. Return precautions discussed. I personally spent a total of 25 minutes in [id number] consultation with the patient, of which 15were in patient education and counseling. Rosario Partida MD FACS FASCRS design engineer Division of Colon and Rectal Surgery [facility] Pager [phone] documented in this encounter Plan of Treatment Not on file documented as of this encounter Procedures Procedure Name Priority Date/Time Associated Diagnosis Comments SURGICAL PATHOLOGY REPORT Routine 06/09/2020 11:46 AM EST SPECIMEN TO PATHOLOGY Routine 06/09/2020 11:46 AM EST Anal condyloma documented in this encounter Results * Surgical Pathology Report (06/09/2020 11:46 AM EST) Final Diagnosis [id number] ? Location: 4L The signing pathologist has (i) examined the relevant preparation(s) for the specimen(s) and (ii) rendered or confirmed the diagnosis(es). . ?Surgical Pathology DIAGNOSIS Perianal skin: Anal condyloma (low-grade squamous intraepithelial lesion, LSIL). Electronically signed by: ??Aide MCCALL PhD, Rabia Verified: ??06/11/2020 ?Pathologist Performed at: ??-[facility] Dept. of Pathology, [place], [place] DISCUSSION The case was reviewed at the GI pathology consensus conference (Dr. Katrin Basurto, Dr. Barbara Clark, Dr. Rabia Noble, Dr. Vinod Pedraza). SPECIMEN(S) SUBMITTED A - Perianal skin, excision (multiple) CLINICAL INFORMATION Perianal condyloma SPECIMEN PROCESSING A - Labeled/Fixative: Patient demographics, formalin. Quantity/Size: ??Four, ranging from 0.5 x 0.2 x 0.1 cm to 0.9 x 0.7 x 0.3 cm. Tissue Description: Fragments of white skin, each with a firm white, verrucous plaque. Sections/Processin g: Entirely submitted in 3 cassettes as follows: ?A1: ??Two inked and intact fragments ?A2: ??Single fragment, inked and trisected ?A3: ??Single fragment, inked and quadrisected ??eliud 06/11/2020 4:00 PM EST [facility] SPECIMEN FROM SKIN / Unknown 06/09/2020 11:46 AM EST 06/09/2020 11:46 AM EST Rosario Partida MD PATHOLOGY/CYTOLOGY O GUCCIERALILIANA [facility] [place] [address] * Specimen to Pathology (06/09/2020 11:46 AM EST) AP Specimen 06/09/2020 11:4 6 AM EST 06/09/2020 12:11 PM EST Narrative [facility] - 06/09/2020 12:11 PM EST Specimen requisition ordered. ??Separate Pathology report to follow Resulting Agency Comment Spec In Lab Rosario Partida MD PATHOLOGY/CYTOLOGY O RDERABLES [facility] [place] [place] [address] documented in this encounter Visit Diagnoses Diagnosis Anal condyloma Condyloma acuminatum Perianal condylomata Condyloma acuminatum documented in this encounter Care Teams Vault Maker Relationship Specialty Start Date End Date Kayla Salguero MD [address] [place] [address] PCP - General Family Medicine 01/07/20 documented as of this encounter
--- OUTSIDE RECORDS SUMMARY | 2024-01-19 18:51 | XMS_ITS | Encounter Summary ---
Author Organization [facility] [place] [address] Care Team Providers Care Multiple Pressure Riveter Operator Name Role Phone Kayla Salguero MD Primary Care Provider [phone] Reason for Visit * Reason Comments Follow-up Encounter Details Date Type Department Care Team (Late st Contact Info) Description 02/02/2021 9:30 AM EDT Office [place] [address] Rosario Partida MD [facility] [place] [address] Perianal condylomata Social History Tobacco Use Types [...] Mass Index 29.84 02/02/2021 9:18 AM EDT documented in this encounter Progress Notes * Rosario Partida MD - 02/02/2021 9:30 AM EDT Colorectal Surgery Follow Up HPI: Keryr presents today for follow up for anal condyloma - she underwent electrodesiccation in July 2020. She notes no changes to her bowels, no bleeding. Does not notice any perianal lesions. BP 127/79 Pulse 73 Temp 36.4 ??C (97.5 ??F) Resp 16 Ht 167.6 cm (5' 5.98) Wt 83.8 kg (184 lb 12.8 oz) SpO2 99% BMI 29.84 kg/m?? Body mass index is 29.84 kg/m??. The patient was examined in the prone shelley knife position with Yahaira assisting. The perianal skin has no active condyloma. There are a couple of superficial scars from prior excisions. The anus is closed. On digital rectal [...] were inspected. 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 ??These were treated with excision and electrodessication in May 2020 and again in July 2020. Prior treatments include excision and desiccation in the OR and office, and office application of podophyllin. No evidence of recurrent condylomas on exam today - this is the first time she has not had intervallesions. Will plan for repeat evaluation in August 2021 Rosario Partida MD [facility] FASCRS script girl Division of Colon and Rectal Surgery [facility] Pager [phone] documented in this encounter Plan of Treatment Not on file documented as of this encounter Visit Diagnoses Diagnosis Perianal condylomata Condyloma acuminatum documented in this encounter Care Teams Multiple Pressure Riveter Operator Relationship Specialty Start Date End Date Kayla Salguero MD [address] [place] [address] PCP - General Family Medicine 01/07/20 documented as of this encounter
--- OUTSIDE RECORDS SUMMARY | 2024-01-19 18:51 | XMS_ITS | Encounter Summary ---
[place] [address] Care Team Providers Care Hip Hop Dancer Name Role Phone MenomineeAdwoa ortiz ENGLISH TEACHER Primary Care Provider [phone] Encounter Details Date Type Department Care Team (Late st Contact Info) Description 10/17/2017 Telephone [place] [address] Rosario Partida MD [facility] [place] [address] Social History Tobacco Use Types Packs/Day Years [...] Telephone Encounter - Rosario Partida MD - 10/17/2017 5:22 PM EDT Kerry is recovering well after surgery. 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 Is due for her Pap - will call her PCP to arrange. Rosario Partida MD experimental preflight mechanic Division of Colon and Rectal Surgery [facility] Pager [phone] documented in this encounter Plan of Treatment Not on file documented as of this encounter Visit Diagnoses Not on filedocumented in this encounter Care Teams Hip Hop Dancer Relationship Specialty Start Date End Date Adwoa Smith APRN PCP - General 05/04/10 01/06/20 documented as of this encounter
--- OUTSIDE RECORDS SUMMARY | 2024-01-19 18:51 | XMS_ITS | Encounter Summary ---
Author Organization [facility] [place] [address] Care Team Providers Care Color Repairer Name Role Phone LeaAdwoa ortiz EDUCATION PROFESSIONAL Primary Care Provider [phone] Encounter Details Date Type Department Care Team (Late st Contact Info) Description 10/29/2019 3:30 PM EDT Office [place] [address] Rosario Partida MD [facility] [place] [address] Perianal condylomata Social History Tobacco Use Types [...] Sign Reading Time Taken Comments Blood Pressure 132/78 10/29/2019 3:18 PM EDT Pulse 98 10/29/2019 3:18 PM EDT Temperature 37.8 ??C (100 ??F) 10/29/2019 3:18 PM EDT Respiratory Rate 18 10/29/2019 3:18 PM EDT Oxygen Saturation 98% 10/29/2019 3:18 PM EDT Inhaled Oxygen Concentration - - Weight 87.1 kg (192 lb) 10/29/2019 3:18 PM EDT Height - - Body Mass Index 30.99 02/20/2018 9:12 AM EDT documented in this encounter Progress Notes * Rosario Partida MD - 10/29/2019 3:30 PM EDT Colorectal Surgery Follow Up HPI: Kerry returns today for management of recurrent anal condyloma. She was last seen by me in June 2018 at which time 4 small lesions were excised and the bases were cauterized. We had discussed using Imiquimod to prevent recurrence but she did not start this. She called back in May withconcerns about recurrence and requesting imiquimod. I felt that she should be evaluated prior to starting a new therapy. She was unable to come in for a visit until today. She notes there are some small lesions that have recurred. No pain, no significant growth. No change in bowel control BP 132/78 Pulse 98 Temp 37.8 ??C (100 ??F) Resp 18 Wt 87.1 kg (192 lb) SpO2 98% BMI 30.99 kg/m?? Body mass index is 30.99 kg/m??. Gen NAD The patient was examined in the prone shelley knife position with Aram assisting. There are about 8 small, fleshy lesions on the perianal skin and perineal body. The anus is closed. On digital rectal exam resting tone is normal and squeeze tone is normal. There is normal relaxation with valsalva. There are no masses. There is no gross blood. There is no tenderness to palpation. Anoscopy: The well lubricated anoscope was inserted into the anal canal and the entire anal canal and distal rectum were inspected. Findings include: Normal distal rectal and anal canal mucosa. No intra-anal canal lesions. COREFO Responses 09/29/2017 11/14/2017 02/20/2018 06/26/2018 10/29/2019 Incontinence Scale 0 0 0 2.77 2.77 Social Impact Scale 2.77 2.77 5.55 8.33 5.55 Frequency Scale 12.5 0 12.5 0 12.5 Stool Releated Aspects 0 0 8.33 0 0 Medication Scale 0 0 0 8.33 0 Total COREFO Score 1.92 0.96 3.84 4.8 3.84 The COREFO questionnaire is a validated questionnaire [...] functional disturbance. Assessment/Plan: Kerry Reddy is a 39 yo woman with a history of AIN and recurrent perianal condyloma. No internal lesions. We have previously tried excision and electrocautery. Discussed repeat excision and electrocautery, home application of Imiquimod, and application of 25% podophyllin. She hadsome systemic effects with one dose of Imiquimod in the past. Prefers an in-office treatment. Wouldlike to try the 25% podophyllin today. This was applied to the 8 perianal lesions. She was instructed to wash the area after about 4 hours before going to bed Follow up in 8 weeks for repeat evaluation. I personally spent a total of 20 minutes in [id number] consultation with the patient, of which 15were in patient education and counseling. Rosario Partida MD FACS medical care administrator Division of Colon and Rectal Surgery [facility] Pager [phone] documented in this encounter Plan of Treatment Not on file documented as of this encounter Visit Diagnoses Diagnosis Perianal condylomata Condyloma acuminatum documented in this encounter Care Teams Color Repairer Relationship Specialty Start Date End Date Adwoa Smith APRN PCP - General 05/04/10 01/06/20 documented as of this encounter
--- OUTSIDE RECORDS SUMMARY | 2024-01-19 18:51 | XMS_ITS | Encounter Summary ---
[place] [address] Care Team Providers Care Slubber Runner Name Role Phone Adwoa Smith APRN Primary Care Provider [phone] Encounter Details Date Type Department Care Team (Late st Contact Info) Description 09/19/2019 Telephone [place] [phone] Mayda Cade Social History Tobacco Use Types Packs/Day Years [...] encounter Miscellaneous Notes * Telephone Encounter - Mayda Cade - 09/19/2019 9:08 AM EDT Spoke to patient in order to reschedule her routine follow up appointment with Dr Rosario Partida- currently sched 09/23. Pt chose to reschedule out to October 21. documented in this encounter Plan of Treatment Not on file documented as of this encounter Visit Diagnoses Not on filedocumented in this encounter Care Teams Slubber Runner Relationship Specialty Start Date End Date Adwoa Smith APRN PCP - General 05/04/10 01/06/20 documented as of this encounter
--- OUTSIDE RECORDS SUMMARY | 2024-01-19 18:51 | XMS_ITS | Encounter Summary ---
Author Organization [facility] [place] [address] Care Team Providers Care Senior Enterprise Architect Name Role Phone BeltramiAdwoa ortiz MAKAYLA Primary Care Provider [phone] Encounter Details Date Type Department Care Team (Late st Contact Info) Description 02/20/2018 9:00 AM EDT Office [place] [address] Rosario Partida MD [facility] [place] [address] Anal condyloma; Perianal condylomata Social History Tobacco [...] Sign Reading Time Taken Comments Blood Pressure 137/87 02/20/2018 9:12 AM EDT Pulse 76 02/20/2018 9:12 AM EDT Temperature 37 ??C (98.6 ??F) 02/20/2018 9:12 AM EDT Respiratory Rate 12 02/20/2018 9:12 AM EDT Oxygen Saturation 100% 02/20/2018 9:12 AM EDT Inhaled Oxygen Concentration - - Weight 75.8 kg (167 lb 1.6 oz) 02/20/2018 9:12 A M EDT Height 167.6 cm (5' 6) 02/20/2018 9:12 AM EDT Body Mass Index 26.97 02/20/2018 9:12 AM EDT documented in this encounter Progress Notes * Rosario Partida MD - 02/20/2018 9:00 AM EDT Colon and Rectal Surgery Follow-up Office Visit COREFO Responses 04/07/2016 09/20/2016 09/29/2017 11/14/2017 02/20/2018 Incontinence Scale 0 0 0 0 0 Social Impact Scale 2.77 2.77 2.77 2.77 5.55 Frequency Scale 0 12.5 12.5 0 12.5 Stool Releated Aspects 0 0 0 0 8.33 Medication Scale 0 0 0 0 0 Total COREFO Score 0.96 1.92 1.92 0.96 3.84 Interval History: No issues since last visit 4 months ago besides reported growth of the condyloma.No issues with incontinence. No pain. BP 137/87 Pulse 76 Temp 37 ??C (98.6 ??F) (Oral) Resp 12 Ht 167.6 cm (5' 6) Wt 75.8 kg (167 lb 1.6 oz) SpO2 100% BMI 26.97 kg/m2 Body mass index is 26.97 kg/(m^2). The patient was examined in the prone shelley knife position with Edith assisting. The perianal skin has 2 5mm condylomata in the posterior midline. In the right lateral there are 4, 1mm condylomata. The anus is closed. On digital rectal exam resting tone is normal and squeeze tone is normal. There is normal relaxation with valsalva. There are no masses. There is no gross blood. There is no tenderness to palpation. Anoscopy: The well lubricated anoscope was inserted into the anal canal and the entire anal canal and distal rectum were inspected. Findings include: anal margin condyloma as noted on external exam. No lesions noted in the anal canal After informed consent was obtained, the anal margin was first numbed with lidocaine topical gel and then 5cc 0.25% marcaine with epi were injected in the skin. Proper PPE were worn including N95 respirators. The condylomata were excised with iris scissors and sent as a specimen. The bases were burned with electrocautery for hemostasis. 2 of the smaller areas in the right lateral were treated with cautery only and not excised. EBL minimal Kerry tolerated the procedure well. A/P: Kerry is a 37 yo woman with a history of anal condylomata and AIN1. Re- excision and electrodessication performed in the office today. Follow up pathology. If no concerning pathology, follow up in 4 months for anoscopy. I personally spent a total of 25 minutes in [id number] consultation with the patient, of which 15were in patient education and counseling. Rosario Partida MD depalletizer operator Division of Colon and Rectal Surgery [facility] Pager [phone] documented in this encounter Plan of Treatment Not on file documented as of this encounter Procedures Procedure Name Priority Date/Time Associated Diagnosis Comments SPECIMEN TO PATHOLOGY Routine 02/20/2018 9:59 AM EDT Anal condyloma SURGICAL PATHOLOGY REPORT Routine 02/20/2018 9:58 AM EDT documented in this encounter Results * Specimen to Pathology (02/20/2018 9:59 AM EDT) AP Specimen 02/20/2018 9:59 AM EDT 02/20/2018 9:59 AM EDT Narrative [facility] - 02/20/2018 9:59 AM EDT Specimen requisition ordered. ??Separate Pathology report to follow Rosario Partida MD PATHOLOGY/CYTOLOGY O RDERABLES Performing Organization Address City/State/[facility] Co de Phone Number [facility] [place] [address] * Surgical Pathology Report (02/20/2018 9:58 AM EDT) Final Diagnosis [id number] ? Location: 4L The signing pathologist has (i) examined the relevant preparation(s) for the specimen(s) and (ii) rendered or confirmed the diagnosis(es). . ?Surgical Pathology DIAGNOSIS Anal margin, lesion: Anal condyloma (low-grade squamous intraepithelial lesion, LSIL). Electronically signed by: ??Barbara Clark MD Verified: ??02/26/2018 ?Pathologist Performed at: ??-[facility] [place], [place], [place] CLINICAL INFORMATION Specimen Submitted: A - Anal margin lesions Clinical History and Diagnosis: Anal condyloma and AIN 1 SPECIMEN PROCESSING A - Labeled/Fixative: Patient demographics, formalin. Quantity/Size: Six, ranging from 0.3 x 0.2 x 0.1 cm to 0.5 x 0.4 x 0.2 cm. Tissue Description: Sessile to pedunculated white verrucous skin papules. Sections/Processin g: The base of each is inked, each is submitted intact. (T2) ??eliud 02/26/2018 7:25 PM EDT [facility] GI Biopsy 02/20/2018 9:58 AM EDT 02/20/2018 9:58 AM EDT Rosario Partida MD PATHOLOGY/CYTOLOGY O [facility]SC[facility] [place] [address] documented in this encounter Visit Diagnoses Diagnosis Anal condyloma Condyloma acuminatum Perianal condylomata Condyloma acuminatum documented in this encounter Care Teams Senior Enterprise Architect Relationship Specialty Start Date End Date Adwoa Smith APRN PCP - General 05/04/10 01/06/20 documented as of this encounter
--- OUTSIDE RECORDS SUMMARY | 2024-01-19 18:51 | XMS_ITS | Encounter Summary ---
Author Organization [facility] [place] [address] Care Team Providers Care Electrical Prospecting Operator Name Role Phone Kayla Salguero MD Primary Care Provider [phone] Reason for Visit * Reason Comments Follow-up Encounter Details Date Type Department Care Team (Late st Contact Info) Description 08/04/2020 9:00 AM EST Office [place] [address] Rosario Partida MD [facility] [place] [address] Anal condyloma; Perianal condylomata Social History Tobacco [...] Reading Time Taken Comments Blood Pressure 127/79 08/04/2020 9:09 AM EST Pulse 86 08/04/2020 9:09 AM EST Temperature 36.4 ??C (97.6 ??F) 08/04/2020 9:09 AM ES T Respiratory Rate 16 08/04/2020 9:09 AM EST Oxygen Saturation 98% 08/04/2020 9:09 AM EST Inhaled Oxygen Concentration - - Weight 87.8 kg (193 lb 8 oz) 08/04/2020 9:09 AM EST Height 167.6 cm (5' 5.98) 08/04/2020 9:09 AM ES T Body Mass Index 31.25 08/04/2020 9:09 AM EST documented in this encounter Progress Notes * Rosario Partida MD - 08/04/2020 9:00 AM EST Colorectal Surgery Follow Up HPI: Kerry was last seen 06/09/2020 for excision and electrodessication of perianal condyloma. Shepresents for follow up. No current issues. Has not noted any recurrence or irritation. BP 127/79 (BP Location (NBP): Right arm) Pulse 86 Temp 36.4 ??C (97.6 ??F) Resp 16 Ht 167.6cm (5' 5.98) Wt 87.8 kg (193 lb 8 oz) SpO2 98% BMI 31.25 kg/m?? Body mass index is 31.25 kg/m??. The patient was examined in the prone shelley knife position with Soraida assisting. There are about 5 areas of persistent/recurrent condyloma. 2 areas are about 4- 6mm, the others about 2mm. The anus is clsoed. On digital rectal exam resting tone is normal and squeeze tone is normal. There is normal relaxation with valsalva. There are no masses. There is no gross blood. There is no tenderness to palpation. Anoscopy: The well lubricated anoscope was inserted into the anal canal and the entire anal canal and distal rectum were inspected. Findings include: no intra- anal canal lesions After discussing risks and benefits of observation versus a procedure today, we performed a repeat fulguration. Consent was signed. The skin was cleansed with betadine. The skin under the condylomas was numbed with 1% lidocaine with epi. Electrocautery was then used to fulgarate the lesions. The large lesion on the right perineum was excised and sent for pathology. She tolerated the procedure well. COREFO Responses 06/26/2018 10/29/2019 01/07/2020 06/09/2020 08/04/2020 Incontinence Scale 2.77 2.77 0 2.77 0 Social Impact Scale 8.33 5.55 8.33 5.55 11.11 Frequency Scale 0 12.5 12.5 12.5 0 Stool Releated Aspects 0 0 16.66 8.33 0 Medication Scale 8.33 0 0 16.66 8.33 Total COREFO Score 4.8 3.84 5.76 6.73 4.8 The COREFO questionnaire is a validated questionnaire [...] treated with excision and electrodessication in May and again today. Prior treatments include excision and desiccation in the OR and office, and office application of podophyllin. She will likely need ongoing maintenance of these lesions. Plan for follow up in 6 months or soonerif she notes increased growth. I will call her with the pathology results. I personally spent a total of 25 minutes in [id number] consultation with the patient, of which 15were in patient education and counseling. Rosario Partida MD FACS FASCRS oil well shooter Division of Colon and Rectal Surgery [facility] Pager [phone] documented in this encounter Plan of Treatment Not on file documented as of this encounter Procedures Procedure Name Priority Date/Time Associated Diagnosis Comments SPECIMEN TO PATHOLOGY Routine 08/04/2020 9:42 AM EST Anal condyloma SURGICAL PATHOLOGY REPORT Routine 08/04/2020 9:40 AM EST documented in this encounter Results * Specimen to Pathology (08/04/2020 9:42 AM EST) AP Specimen 08/04/2020 9:42 AM EST 08/04/2020 9:42 AM EST Narrative [facility] - 08/04/2020 9:42 AM EST Specimen requisition ordered. ??Separate Pathology report to follow Rosario Partida MD PATHOLOGY/CYTOLOGY O OSC[facility] [place] [address] * Surgical Pathology Report (08/04/2020 9:40 AM EST) Final Diagnosis [id number] ? Location: 4L The signing pathologist has (i) examined the relevant preparation(s) for the specimen(s) and (ii) rendered or confirmed the diagnosis(es). . ?Surgical Pathology DIAGNOSIS Right perineum, ??biopsy: Anal condyloma (low-grade squamous intraepithelial lesion, LSIL / AIN-I). Electronically signed by: ??Aide MCCALL PhD, Rabia Verified: ??08/11/2020 ?Pathologist Performed at: ??-[facility] [place], [place], [place] SPECIMEN(S) SUBMITTED A - right perineum, excision (1) CLINICAL INFORMATION Perianal condyloma SPECIMEN PROCESSING A - Labeled/Fixative: Patient demographics, formalin. Quantity/Size: ??Single, 0.5 x 0.3 x 0.3 cm. Tissue Description: Espinoza-crane papule. Sections/Processin g: Inked, bisected and entirely submitted in 1 cassette labeled A1. ??eliud 08/11/2020 9:16 AM EST [facility] SPECIMEN FROM SKIN / Unknown 08/04/2020 9:40 AM EST 08/04/2020 9:40 AM EST Rosario Partida MD PATHOLOGY/CYTOLOGY O RDYEFRI [facility] [place] [address] documented in this encounter Visit Diagnoses Diagnosis Anal condyloma Condyloma acuminatum Perianal condylomata Condyloma acuminatum documented in this encounter Care Teams Electrical Prospecting Operator Relationship Specialty Start Date End Date Kayla Salguero MD [address] [place] [address] PCP - General Family Medicine 01/07/20 documented as of this encounter
--- OUTSIDE RECORDS SUMMARY | 2024-01-19 18:51 | XMS_ITS | Encounter Summary ---
Author Organization Formerly [facility] [place] [place] [address] Care Team Providers Care Boiler Coverer Name Role Phone Kayla Salguero MD Primary Care Provider [phone] Encounter Details Date Type Department Care Team (Late st Contact Info) Description 01/07/2020 11:30 AM EDT Office [place] [address] Rosario Partida MD [facility] [place] [address] Perianal condylomata Social History Tobacco Use Types [...] Sign Reading Time Taken Comments Blood Pressure 131/92 01/07/2020 11:37 AM EDT Pulse 63 01/07/2020 11:37 AM EDT Temperature - - Respiratory Rate 18 01/07/2020 11:37 AM EDT Oxygen Saturation 98% 01/07/2020 11:37 AM EDT Inhaled Oxygen Concentration - - Weight 87.1 kg (192 lb) 01/07/2020 11:37 AM EDT Height - - Body Mass Index 30.99 02/20/2018 9:12 AM EDT documented in this encounter Patient Instructions * Patient Instructions* Rosario Partida MD - 01/07/2020 11:30 AM EDT For imiquimod: Apply a thin layer to the perianal skin 3 nights a week (but not 2 nights in a row). Wash off in the shower in the morning. If you are having too much discomfort, reduce from 3 nights a week, to 2 nights a week. documented in this encounter Progress Notes * Rosario Partida MD - 01/07/2020 11:30 AM EDT Colorectal Surgery Follow Up HPI: Kerry returns today for follow up of her perianal condylomas. She was last seen 10/29/2019 when she had application of 25% podophyllin. She notes some irritation and soreness of the areas besides the gluteal cleft lesion. Feels that all areas regressed except the gluteal cleft lesion. BP (!) 131/92 Pulse 63 Resp 18 Wt 87.1 kg (192 lb) SpO2 98% BMI 30.99 kg/m?? Body mass index is 30.99 kg/m??. Gen NAD The patient was examined in the prone shelley knife position with Shania assisting. There are about 8 small, fleshy lesions on the perianal skin and perineal body with the largest one (approx 8mm at thebottom of the gluteal cleft). The anus is closed. On digital rectal [...] anal canal mucosa. No intra-anal canal lesions. ?? COREFO Responses 11/14/2017 02/20/2018 06/26/2018 10/29/2019 01/07/2020 Incontinence Scale 0 0 2.77 2.77 0 Social Impact Scale 2.77 5.55 8.33 5.55 8.33 Frequency Scale 0 12.5 0 12.5 12.5 Stool Releated Aspects 0 8.33 0 0 16.66 Medication Scale 0 0 8.33 0 0 Total COREFO Score 0.96 3.84 4.8 3.84 5.76 The COREFO questionnaire is a validated questionnaire [...] and recurrent perianal condyloma. No internal lesions. While she felt regression of most of the lesions treated 8 weeks ago, these appear unchanged on her exam today. Podophyllin did not seem to make a significant difference as her exam is unchanged and is not currently available for repeat administration. We are not currently able to do an excision and cautery in the office pending equipment purchasing. I offered her EUA and electrodesiccation in the OR versus a trial of imiquimod. She had previously used imiquimod in 2017 but had stopped it early due to side effects including fatigue and flu-like symptoms. In discussing options, she would like to try the imiquimod again. We discussed that if sideeffects are too much, she can decrease from 3 nights a week to 2 nights. She will apply the imiquimod 3 nights a week for 14 weeks, then have about 5 weeks off prior to repeat office evaluation. If she is unable to tolerate the imiquimod, would stop it and plan for treatment in OR or in office if equipment is available by then. No changes to health, medications, . I personally spent a total of 25 minutes in ggqg-st-zsty consultation with the patient, of which 15were in patient education and counseling. Rosario Partida MD FACS residential construction instructor Division of Colon and Rectal Surgery [facility] Pager [phone] documented in this encounter Plan of Treatment Not on file documented as of this encounter Visit Diagnoses Diagnosis Perianal condylomata Condyloma acuminatum documented in this encounter Care Teams Boiler Coverer Relationship Specialty Start Date End Date Kayla Salguero MD [address] [place] [address] PCP - General Family Medicine 01/07/20 documented as of this encounter
--- OUTSIDE RECORDS SUMMARY | 2024-01-19 18:51 | XMS_ITS | Encounter Summary ---
[facility] [place] [address] Care Team Providers Care Ross Carrier Driver Name Role Phone AndrewAdwoa ortiz MAKAYLA Primary Care Provider [phone] Encounter Details Date Type Department Care Team (Latest Contact Info) Description 10/12/2017 6:22 AM EDT - 10/12/2017 9:45 AM EDT Hospital Encounter [place] [address] Rosario Partida MD [facility] [place] [address] Discharge Disposition: Home Social History Tobacco Use Types Packs/Day Years [...] for postoperative pain control. ?? Please take zdak-jby-qlrscxs pain medications for post-operative discomfort. ?? Acetaminophen [...] . Division of Colon and Rectal Surgery, [facility] [address] ??? JOE Foster [phone] ??? documented in this encounter Medications at [...] Operative Note Patient Name: Kerry Reddy : [id number] MR#: [id number] Case Date: 10/12/2017 Surgeon: Surgeon(s) and Role: [...] Info Order Time SPECIMEN TO PATHOLOGY OR3 [id number] ANAL CONDYLOMA Right Posterior Anal Cannal Lesion [...] pertinent to this patient.) Rosario Partida MD health administrator Division of Colon and Rectal Surgery [facility] Pager [phone] * Op Note - Rosario Partida MD - 10/12/2017 8:20 AM EDT [facility] Operative Note Patient Name: Kerry Reddy : [id number] MR#: [id number] Case Date: 10/12/2017 Surgeon: Surgeon(s) and Role: [...] Info Order Time SPECIMEN TO PATHOLOGY OR3 [id number] ANAL CONDYLOMA Right Posterior Anal Cannal Lesion [...] the operating room and intubated on the gurney. She was then positioned in the prone [...] Patient was returned supine position on the gurney and exited in the operating without difficulty. [...] AM EDT 10/12/2017 8:23 AM EDT Narrative [facility] - 10/12/2017 8:23 AM EDT Specimen requisition ordered. ??Separate Pathology report to follow Resulting Agency Comment Spec In Lab Rosario Partida MD PATHOLOGY/CYTOLOGY O R[facility]IL[facility]NA [facility] [place] [address] * Surgical Pathology Report (10/12/2017 8:00 AM EDT) Final Diagnosis [id number] ? Location: [facility]; [facility]; The signing pathologist has (i) examined the relevant preparation(s) for the specimen(s) and (ii) rendered or confirmed the diagnosis(es). . 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 See discussion #1. Electronically signed by: ??Milo MCCALL PhD, Vinod Cooper Verified: ??10/17/2017 ?Pathologist Performed at: ??-[facility] Dept. of Pathology, [place], [place] DISCUSSION 1. ??Multiple levels were examined. [...] Bisected. (T1) ??sns 10/17/2017 10:27 AM EDT [facility] GI Biopsy 10/12/2017 8:00 AM EDT 10/12/2017 8:00 AM EDT Rosario Partida MD PATHOLOGY/CYTOLOGY O [facility] Performing Organization Address City/State/[facility] Co de Phone Number [facility] [place] [address] documented in this encounter Visit Diagnoses Not [...] Given 10/12/2017 9:32 AM EDT 1,000 mg lactated Ringers infusion 1,000 mL 1,000 mL, at 100 mL/hr, Intravenous, CONTINUOUS, Starting on Divya 10/12/17 at 0730, Until Divya 18 at 0940, Day of Surgery (Day of [...] on Divya 10/12/17 at 0702, Until Divya 18 at 0717, for discomfort with PIV insertion, Day of Surgery (Day of Procedure), Routine 0717 (Given - Provid er: Haley Issa RN) documented in this encounter Care Teams Ross Carrier Driver Relationship Specialty Start Date End Date Adwoa Smith APRN PCP - General 05/04/10 01/06/20 documented as of this encounter
--- OUTSIDE RECORDS SUMMARY | 2024-01-19 18:51 | XMS_ITS | Encounter Summary ---
[place] [address] Care Team Providers Care Superintendent Warehouse Name Role Phone Kayla Salguero MD Primary Care Provider [phone] Encounter Details Date Type Department Care Team (Late st Contact Info) Description 06/17/2020 Telephone [place] [phone] Rosario Partida MD [facility] [place] [address] Social History Tobacco Use Types Packs/Day Years [...] Telephone Encounter - Rosario Partida MD - 06/17/2020 2:25 PM EST I spoke with Kerry on the phone. She tolerated the office procedure well. No significant side effects. 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 Has follow up in about 8 weeks. Rosario Partida MD FACS [employer] mobile developer Division of Colon and Rectal Surgery [facility] Pager [phone] documented in this encounter Plan of Treatment Not on file documented as of this encounter Visit Diagnoses Not on filedocumented in this encounter Care Teams Superintendent Warehouse Relationship Specialty Start Date End Date Kayla Salguero MD [address] [place] [address] PCP - General Family Medicine 01/07/20 documented as of this encounter
--- OUTSIDE RECORDS SUMMARY | 2024-01-19 18:51 | XMS_ITS | Encounter Summary ---
[place] [address] Care Team Providers Care Workers Compensation Paralegal Name Role Phone LemhiAdwoa ortiz APRN Primary Care Provider [phone] Encounter Details Date Type Department Care Team (Late st Contact Info) Description 10/12/2017 7:32 AM EDT Anesthesia Event [place] [phone] Ingrid Szymanski MD [facility] DR ANESTHESIOLOGY [place] [address] Anesthesia Record Procedure Summary Procedure Name Responsible Anesthesiologist Anesthesia Start Time Anesthesia Stop Time BIOPSY ANORECTAL WALL (WRVU 4.04) (Anus) Ingrid Szymanski MD 10/12/17 0732 10/12/17 0823 Events Date Time Event Comment 10/12/2017 0732 AN Verify 0732 Start 0732 An Start Data 0736 An Induction 0738 An Intubation 0748 Anesthesia Ready 0813 Extubation/LMA Out 0815 an stop data 0818 Recovery or ICU Handoff Ramona ent care was transferred to the destination unit staff after review of the patient's medical history, current anesthetic/surgical status and plan, according to the Provider Handoff Checklist. 0823 Stop 0832 Meds Name Total Midazolam 2 mg fentaNYL 150 mcg IV Lidocaine 100 mg Propofol 250 mg Ondansetron 4 mg Dexamethasone 8 mg Succinylcholine 80 mg Propofol INF 66.3 mg Lactated Ringers 500 mL * Agents Name O2 Air N2O Sevoflurane (et) * Blood No blood administrations on file. Lines, Drains, and Airways Type Details Placement Removal (RETIRED) Peripheral IV Line - Single Lumen 10/12/17; 0715; cephalic vein (lateral side of arm), right; eual-tyq-tdymnj catheter system; 20 gauge, 1 in length; haley issa RN; tolerated well, appears comfortable, intradermal injection; no longer indicated; 10/12/17; 0940 10/12/17 0715 by Haley Issa RN 10/12/17 0940 by Ingrid Flor RN ETT Mask Ventilation: Ea sy (1); ETT Type: Cuffed, Oral; ETT Size: 7 mm; Mac Blade: 4, 3; Exchange: Bougie; Notes: Asleep, Pre-O2, Cricoid Pressure; Attempts: 2; Laryngoscopy Grade: 3; ETT Placement Verified By: Auscultation, Capnometry, Visual; Secured at Teeth: 22 cm; Inserted by: Brianda Lane CRNA; Removal Date: 10/12/17; Removal Time: 0810/12/[address], PLASTER BLOCK LAYER 10/12/[address], PLASTER BLOCK LAYER Incision 10/12/17; 0758; anus ; 02/07/22 (LDA cleanup utility RA#[id number]); 1715 (LDA cleanup utility RA#[id number]) 10/12/17 0758 by Luisa Wang RN 02/07/22 1715 by Sarah Cárdenas documented in this encounter Social History Tobacco Use Types Packs/Day Years Used Date Smoking Tobacco: Every Day Cigarettes Smokeless Tobacco: Never Alcohol Use Standard Drinks/Week Comments Yes 0 (1 standard drink = 0.6 oz pur e alcohol) social Sex and Gender Information Value Date Recorded Sex Assigned at Not on file Gender Identity Not on file Sexual Orientation Not on file documented as of this encounter OR Notes * Anesthesia Postprocedure Evaluation - Ingrid Szymanski MD - 10/12/2017 9:09 AM EDT [facility] Department of Anesthesiology Post-procedure Note Patient: Kerry Reddy Procedure Summary Date Anesthesia Start Anesthesia Stop Room / Location 10/12/17 0732 0823 [facility] MAIN OR Procedure Diagnosis Surgeon Responsible Provider BIOPSY ANORECTAL WALL (WRVU 4.04) (N/A Anus); ANAL LESION DESTRUCTION, SIMPLE, ELECTRODESICCATION (WRVU 1.91) (N/A Anus) (ANAL CONDYLOMA) Rosario Partida MD O'Flaherty, Jennifer E, MD All Anesthesia Providers: Anesthesiologist: Ingrid Szymanski MD PLASTER BLOCK LAYER: Brianda Lane CRNA Most Recent Vitals: 10/12/17 0847 BP: (!) 160/99 Pulse: Resp: 16 Temp: SpO2: 95% Pain 0 (10/12/17846) Patient Location: PACU/[facility] Level of Consciousness: Awake and Alert Pain Management: Satisfactory Analgesia PONV: None Cardiovascular Status: At Baseline Respiratory Status: At Baseline Postoperative Fluid Status: Intravascular EUvolemia Possible Anesthetic Complications: NONE apparent at time of evaluation Final Primary Anesthesia Type: General (The anesthetic type performed was the same as planned.) Comments: * Anesthesia Preprocedure Evaluation - Ingrid Szymanski MD - 10/12/2017 8:28 AM EDT Pre-Anesthesia Evaluation for: Kerry Reddy a 37 y.o. female. Procedure(s): BIOPSY ANORECTAL WALL (WRVU 4.04) ANAL LESION DESTRUCTION, SIMPLE, ELECTRODESICCATION (WRVU 1.91) Patient Active Problem List Diagnosis ??? Perianal condylomata History reviewed. No pertinent past medical history. History reviewed. No pertinent surgical history. Social History Substance Use Topics ??? Smoking status: Current Every Day Smoker Packs/day: 0.50 ??? Smokeless tobacco: Never Used ??? Alcohol use Yes Comment: social History Drug Use No No Known Allergies Medications: MAR and/or home medications have been reviewed. Physical Exam: Most Recent Vitals: 10/12/17 0819 BP: Pulse: Resp: (P) 16 Temp: (P) 36.5 ??C (97.7 ??F) SpO2: (P) 97% Body mass index is 27.76 kg/(m^2). Height: 167.6 cm (5' 6) Weight: 78 kg (172 lb) Airway Assessment: Mallampati: II TM distance: >3 FB Neck ROM: full Prominent upper teeth Cardiovascular Assessment: Pulmonary Assessment: Dental Assessment: Comment: Poor dentition Misc Assessment: IV access: Peripheral line Anesthesia Plan: ASA 2 general, with a(n) intravenous induction Plan GA with RM- ETT (for prone positioning). Plans and risks reviewed. Questions answered. Region - Other Informed Consent: Anesthetic plan and risks discussed with patient and mother. Plan discussed with PLASTER BLOCK LAYER and attending. PAT Staff Note documented in this encounter Plan of Treatment Not on file documented as of this encounter Visit Diagnoses Not on filedocumented in this encounter Administered Medications Inactive Administered Medications - up to 3 most recent administrations Medication Order MAR Action Action Date Dose Rate Site dexamethasone (DECADRON) injection PRN, Starting on Divya 10/12/17 at 0742, Until Divya 10/12/17 at 0826, Anesthesia Intra-op, Routine Given 10/12/2017 7:42 AM EDT 8 mg fentaNYL 50 mcg/mL multi-dose injection PRN, Starting on Divya 10/12/17 at 0736, Until Divya 10/12/17 at 0826, Pain, Anesthesia Intra-op, Routine Given 10/12/2017 7:59 AM EDT 50 mcg Given 10/12/2017 7:42 AM EDT 50 mcg Given 10/12/2017 7:36 AM EDT 50 mcg lactated Ringers infusion CONTINUOUS PRN, Starting on Divya 10/12/17 at 0732, Until Divya 10/12/17 at 0826, Anesthesia Intra-op New Bag 10/12/2017 7:32 AM EDT lidocaine (PF) (XYLOCAINE) 100 mg/5 mL (2 %) injection PRN, Starting on Divya 10/12/17 at 0736, Until Divya 10/12/17 at 0826, Anesthesia Intra-op, Routine Given 10/12/2017 7:36 AM EDT 100 mg midazolam (PF) (VERSED) 1 mg/mL multi-dose injection PRN, Starting on Divya 10/12/17 at 0732, Until Divya 10/12/17 at 0826, Sleep, Anesthesia Intra-op, Routine Given 10/12/2017 7:32 AM EDT 2 mg ondansetron (ZOFRAN) injection PRN, Starting on Divya 10/12/17 at 0804, Until Divya 10/12/17 at 0826, Nausea, Anesthesia Intra-op, Routine Given 10/12/2017 8:04 AM EDT 4 mg propofol (DIPRIVAN) 10 mg/mL bolus injection (Anesthesia) PRN, Starting on Divya 10/12/17 at 0736, Until Divya 10/12/17 at 0826, Anesthesia Intra-op Given 10/12/2017 7:36 AM EDT 250 mg propofol (DIPRIVAN) infusion CONTINUOUS PRN, Starting on Divya 10/12/17 at 0745, Until Divya 10/12/17 at 0826, Anesthesia Intra-op, Routine New Bag 10/12/2017 7:45 AM EDT 50 mcg/kg/min 23.4 mL/hr succinylcholine chloride (Quelicin) injection PRN, Starting on Divya 10/12/17 at 0736, Until Divya 10/12/17 at 0826, Anesthesia Intra-op, Routine Given 10/12/2017 7:36 AM EDT 80 mg documented in this encounter Care Teams Workers Compensation Paralegal Relationship Specialty Start Date End Date Adwoa Smith APRN PCP - General 05/04/10 01/06/20 documented as of this encounter
--- OUTSIDE RECORDS SUMMARY | 2024-01-19 18:52 | XMS_ITS | Encounter Summary ---
[place] [address] Care Team Providers Care Nuclear Fuel Enrichment Technician Name Role Phone LuisAdwoa Lucas BENAVIDES Primary Care Provider [phone] Reason for Visit * Reason Comments Follow-up Encounter Details Date Type Department Care Team (Late st Contact Info) Description 03/22/2016 11:00 AM EDT Office [place] [address] Lisa Harris PA [address] [place] [address] Perianal condylomata Social History Tobacco Use Types Packs/Day Years Used Date Smoking Tobacco: Every Day Cigarettes Sex and Gender Information Value Date Recorded Sex Assigned at Not on file Gender Identity Not on file Sexual Orientation Not on file documented as of this encounter Last Filed Vital Signs Vital Sign Reading Time Taken Comments Blood Pressure 153/90 03/22/2016 11:24 AM EDT Pulse 86 03/22/2016 11:24 AM EDT Temperature - - Respiratory Rate 16 03/22/2016 11:24 AM EDT Oxygen Saturation 100% 03/22/2016 11:24 AM EDT Inhaled Oxygen Concentration - - Weight 79.2 kg (174 lb 9.7 oz) 03/22/2016 11:24 AM EDT Height - - Body Mass Index 29.09 02/25/2016 9:01 AM EDT documented in this encounter Progress Notes * Lisa Harris PA - 03/22/2016 11:00 AM EDT COLON & RECTAL SURGERY PROCEDURE Visit Interval History: Kerry Reddy is a 36 y.o. female who returns to clinic today for removal pf perianal skin lesions.She was initially seen by me on 02/25/2016 for evaluation for lumps at the anal outlet, which had been present for at least the past 4 months (when she noticed them). There was no associated pain or bleeding. Physical exam at that visit revealed multiple scattered verrucous-appearing lesions. Anal cytology was performed and revealed no intraepithelial lesion or malignancy. Anoscopy revealed no internal masses, lumps or lesions, no ulcer, and no pus within the anal canal. Patient thereafter elected to have the lesions removed in clinic, and returns today for that purpose. Se has been doing well since the last visit. No new health issues have arisen. No f/c/n/v/abd pain. She is moving her bowels well with no pain or bleeding. The procedure was discussed in detail with the patient, including the risks and benefits. After allof her questions were answered, patient stated that she would like to proceed with destruction/removal of the perianal skin lesions. Informed consent was signed (see scanned document). Medications: tylenol prn NKDA Physical Exam: Blood pressure 153/90, pulse 86, resp. rate 16, weight 79.2 kg (174 lb 9.7 oz), [id number] %. Body mass index is 29.09 kg/(m^2). On physical exam, the patient appears well, in no apparent distress. Anicteric. Moist mucus membranes. No pallor. She was examine din the prone jackknife position with Ayla Abreu assisting. Gentle eversion of the anoderm revealed the known verrucous- appearing lesions. FABIEN was unremarkable, with normal resting tons, as well as squeeze/augmentation. Procedure Note: Consent: Written, informed consent obtained Risks and benefits: Risks, benefits and alternative treatments were discussed. Consent given by: Patient Patient understanding: The patient states understanding of the procedure being performed Patient identity confirmed: Verbally with the patient Type: Condyloma Body Area: Perianal skin Location details: right anterior, left anterior, left posterior Skin prep: Betadine (swabs) Anesthesia: Local infiltration Local Anesthetic: Sensorcaine with epinephrine Anesthetic total: 11cc Patient sedated: No Scalpel Size: 11 Incision type: Excision Complexity: Simple Drainage: Scant bleeding Wound treatment: bacitracin; hemostasis achieved with cautery Patient tolerance: Patient tolerated the procedure well with no immediate complications Impression: perianal condyloma s/p clinic excision and fulguration, well tolerated Plan: Will call patient with pathology results. Will have her return to clinic in 2 weeks for woundcheck. I discussed the ssx infection at the wound site, and she agrees to call me immediately or goto her PCP or local ED immediately should those occur. Will plan to see her back in clinic in 6 months for surveillance for recurrent lesions; if none have recurred, will have patient f/u with me prn should new lesions appear thereafter. Lisa Harris PA-C Division of Colon & Rectal Surgery [facility] Pager #[phone] CC PCP: DULCE ALLEN MD documented in this encounter Plan of Treatment Not on file documented as of this encounter Procedures Procedure Name Priority Date/Time Associated Diagnosis Comments SPECIMEN TO PATHOLOGY (NON-OR) Routine 03/22/2016 12:34 PM EDT Perianal condylomata SURGICAL PATHOLOGY REPORT Routine 03/22/2016 12:34 PM EDT documented in this encounter Results * Surgical Pathology Report (03/22/2016 12:34 PM EDT) Final Diagnosis [id number] ?Location: 4L The signing pathologist has (i) examined the relevant preparation(s) for the specimen(s) and (ii) rendered or confirmed the diagnosis(es). . ?Surgical Pathology DIAGNOSIS Skin, perianal skin, excision: - CONDYLOMA ACUMINATUM Electronically signed by: ??Luisa MCCALL, Alberto E Verified: ??03/24/2016 ?Dermatopathol ogist CLINICAL INFORMATION Specimen Submitted: A - Perianal skin lesion, Excision, (multiple) Clinical History: History of perianal warts Clinical Diagnosis: Question condyloma v other etiology SPECIMEN PROCESSING A - Labeled/Fixativ e: The patient demographics, formalin. Quantity/Size: Multiple, ranging from 0.2-0.5 cm. Tissue Description: Soft, pink-white verrucoid, skin papules. Sections/Proces sing: (T3) ??sns 03/24/2016 1:18 PM EDT [facility] SPECIMEN FROM SKIN / Unknown 03/22/2016 12:34 PM EDT 03/22/2016 12:34 PM EDT Lisa POLANCO PATHOLOGY/C YTOLOGY ORDERABLES Performing Organization Address City/[facility]/ZIP Co de Phone Number [facility] [place] [address] * Specimen to Pathology (NON-OR) (03/22/2016 12:34 PM EDT) AP Specimen 03/22/2016 12:3 4 PM EDT 03/22/2016 12:34 PM EDT Narrative [facility] - 03/22/2016 12:34 PM EDT Specimen requisition ordered. ??Separate Pathology report to follow Darnell Lemon MD PATHOLOGY/CYTOLOGY ORDERABLES Performing Organization Address City/[facility]/ZIP Co de Phone Number [facility] [place] [address] documented in this encounter Visit Diagnoses Diagnosis Perianal condylomata Condyloma acuminatum documented in this encounter Care Teams Nuclear Fuel Enrichment Technician Relationship Specialty Start Date End Date Adwoa Smith APRN PCP - General 05/04/10 01/06/20 documented as of this encounter
--- OUTSIDE RECORDS SUMMARY | 2024-01-19 18:52 | XMS_ITS | Encounter Summary ---
[place] [address] Care Team Providers Care Outboard Motorboat Operator Name Role Phone Adwoa Smith APRN Primary Care Provider [phone] Reason for Visit * Reason Comments Anorectal Abnormalities masses/lumps at anal outlet, ?condyloma * Consultation (Routine) - Specialty Diagnoses / Procedures Referred By Tea cole Referred To Contact General Surgery Diagnoses TREAT FOR ANOGENITAL WARTS Kayla Salguero MD [address] [place] [id number] [facility] Gen Surgery [address] [place] [address] Referral ID Status Reason Start Date Expiration Date V isits Requested Visits Authorized [id number] Consult, Test & Treat [facility] 02/02/2016 02/01/2017 1 1 Encounter Details Date Type Department Care Team (Late st Contact Info) Description 02/25/2016 9:00 AM EDT Office [place] [address] Lisa Harris PA [address] [place] [address] Perianal condylomata Social History Tobacco Use Types Packs/Day Years Used Date Smoking Tobacco: Every Day Cigarettes Sex and Gender Information Value Date Recorded Sex Assigned at Not on file Gender Identity Not on file Sexual Orientation Not on file documented as of this encounter Last Filed Vital Signs Vital Sign Reading Time Taken Comments Blood Pressure 159/104 02/25/2016 9:01 AM EDT Pulse 75 02/25/2016 9:01 AM EDT Temperature - - Respiratory Rate 16 02/25/2016 9:01 AM EDT Oxygen Saturation 100% 02/25/2016 9:01 AM EDT Inhaled Oxygen Concentration - - Weight 79.1 kg (174 lb 6.1 oz) 02/25/2016 9:01 A M EDT Height 165 cm (5' 4.96) 02/25/2016 9:01 AM EDT Body Mass Index 29.05 02/25/2016 9:01 AM EDT documented in this encounter Progress Notes * Lisa Harris PA - 02/25/2016 9:00 AM EDT Images from the original note were not included. Colorectal Surgery Outpatient Consultation Note [place] [address] PCP: KAYLA SALGUERO MD Referring Provider: Kayla Salguero [phone] HPI:Kerry Reddy is a very pleasant 35 y.o. female whom we were asked to see by Dr. Salguero regarding Chief Complaint Patient presents with ??? Anorectal Abnormalities masses/lumps at anal outlet, ?condyloma The patient reports that her initial anorectal symptoms appeared several months ago, greater than 4, she believes, which is when she first noticed them. At that time, she felt small lumps around the anal opening when she was wiping. There was no significant bleeding with the lesions. Actually, she has only seen bleeding from that area once, following a bowel movement. There has been no pain associated with the lesions, as well, unless patient has diarrhea. The patient is unsure if the size of the lesions themselves are increasing, but she does believe that they seem to be more numerous. She has been referred to our clinic for evaluation. She states that she has otherwise in stable health. Appetite is good and weight has been stable for the last 12 months at least. No troubles with fevers or chills. No nausea, vomiting or abdominal pain. She is moving her bowels are her baseline right now, typically once to twice a day. Bowel movements have been loose for about the past 4 months. She denies any troubles with melena or hematochezia. No urgency with bowel movements, and no episodes of incontinence to stool or gas. No leakage or seepage from the rectum between bowel movements. No prolapse in tissue. No tenesmus. No change in baseline urinary habits, no hematuria, no dysuria. No unusual discharge or lesions. No history of anal receptive sex. Gynecologic history is notable for 2 vaginal labors, and she did tear with the first. She recalls no change in her ability to control stool or urine following either of her labors. Patient has a history of abnormal Pap smears, and had been undergoing every 6 month Pap smears with her Gynecology team at [facility]. The most recent of those Pap smears was performed last year, by patient report, and was negative for abnormality. The patient has never undergone colonoscopy before. No history of prior anorectal surgery or procedure. COREFO Responses 02/25/2016 Incontinence Scale 0 Social Impact Scale 8.33 Frequency Scale 0 Stool Releated Aspects 8.33 Medication Scale 0 Total COREFO Score 3.84 The COREFO questionnaire is a validated questionnaire with 27 questions to assess colorectal functional outcome. Patients are asked to consider the two week period prior before filling out the questionnaire. Category scores range from zero to 100. A total score is calculated from the categories above, also ranging from zero to 100. A higher score represents an increased level of functional disturbance. Past medical history: Patient Active Problem List Diagnosis Code ??? 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 She has smoked about 1/2 pack/day since age 18. She drinks, on average, 1 beer a day. Family medical history: No known colorectal cancer, colorectal polyps, diverticular disease, Crohn disease or ulcerative colitis. Review of Systems as above, otherwise: Constitutional: Negative for fever, chills, activity change, mild fatigue and unexpected weight change. HEENT: Negative for sore throat, mouth sores and trouble swallowing. Eyes: Negative for diplopia or vision change. Respiratory: Negative for cough, shortness of breath and wheezing. Cardiovascular: Negative for chest pain, palpitations and leg swelling. Gastrointestinal: As above. Genitourinary: Negative for dysuria and difficulty urinating. Musculoskeletal: Negative. Skin: Negative. Neurological: No numbness, tingling or tremors, no fainting. Hematological: Negative for adenopathy. Physical Exam: Blood pressure (!) 159/104, pulse 75, resp. rate 16, height 165 cm (5' 4.96), weight 79.1 kg (174 lb 6.1 oz), SpO2 100 %. Body mass index is 29.05 kg/(m^2). NAD, very pleasant female,moist mucus membranes. No pallor. Anicteric. No audible wheeze, no increased work of breathing. No c/c/e. The patient was examined in the [id number]-[id number] position with Aram assisting. Gentle eversion of the anoderm revealed multiple scattered verrucous-appearing lesions (see photo below). Anal cytology was performed. Resting tone was within normal limits, as was squeeze/aumengtation. FABIEN was unremarkable. Anoscopy was performed into the rectum and revealed no internal masses, lumps or lesions, no ulcer, and no pus within the anal canal. Impression: Perianal condyloma Plan: 1. Call patient with path results once cytology results are returned. 2. I discussed the etiology and pathophysiology of perianal condyloma and HPV in general with the patient. We also discussed the different treatment options for the perianal lesions, namely topical treatment versus excision/fulguration. After all of her questions were answered, she elected to have the lesions removed in clinic. She will visit with the receptionist secretary today to arrange a date for the procedure. 3. Patient will stop by the lab on her way out (HIV, Hep C and syphilis labs have been ordered). Thank you for the consultation. We appreciate the opportunity to take part in Kerry Reddy's care. Lisa Harris PA-C Division of Colon & Rectal Surgery [facility] [phone] CC: KAYLA SALGUERO MD documented in this encounter Plan of Treatment Not on file documented as of this encounter Procedures Procedure Name Priority Date/Time Associated Diagnosis Comments HEPATITIS C ANTIBODY Routine 02/25/2016 10:32 AM EDT Perianal condylomata SYPHILIS ANTIBODY SCREEN WITH REFLEX Routine 02/25/2016 10:32 AM EDT Perianal condylomata HIV SCREEN, 4TH GENERATION (MC/CGP/APD/NLH) Routine 02/25/2016 10:32 AM EDT Perianal condylomata NON-TONGUE BINDER FINAL REPORT Routine 02/25/2016 9:45 AM EDT CYTOPATHOLOGY NON-GYNECOLOGICAL Routine 02/25/2016 9:44 AM EDT Perianal condylomata documented in this encounter Results * Syphilis Antibody, IgG (02/25/2016 10:32 AM EDT) Syphilis IgG Neg Neg [facility] Blood specimen (specimen) 02/25/2016 10:32 AM EDT 02/26/2016 7:10 AM EDT Narrative Resulting Agency Comment Spec In Lab Darnell Lemon MD CHEMISTRY ORDERABL ES Performing Organization Address [facility] Co de Phone Number [facility] [place] [address] * Hepatitis C Antibody (02/25/2016 10:32 AM EDT) Hepatitis C Antibody Negative Negative [facility] Blood specimen (specimen) 02/25/2016 10:32 AM EDT 02/25/2016 10:41 AM EDT Narrative Resulting Agency Comment Spec In Lab Darnell Lemon MD CHEMISTRY ORDERABL ES Performing Organization Address [facility] Co de Phone Number [facility] [place] [address] * HIV Screen, 4th Generation (02/25/2016 10:32 AM EDT) HIV Ab/Ag Screen Negative Negative [facility] Comment: This 4th Generation HIV test [...] Lab Darnell Lemon MD CHEMISTRY ORDERABL ES [facility] [place] [address] * Non-Seed Cleaner Operator Final Report (02/25/2016 9:45 AM EDT) Diagnosis Discussion [id number] ? Location: 4L The signing pathologist has (i) examined the relevant preparation(s) for the specimen(s) and (ii) rendered or confirmed the diagnosis(es). . ? Non-Seed Cleaner Operator Final DIAGNOSIS Negative for Malignancy Electronically signed by: ??Shanice Solomon MD Verified: ??03/01/2016 ?Pathologist DISCUSSION Rectal swab (anal Pap test): Negative for intraepithelial lesion or malignancy (NILM) Transformation zone component present. CLINICAL INFORMATION Specimen Source : ?PAPA Pap Smear, Anal Specimen/LBP/NGYN Pertinent Clinical Data and Significant Therapy: ?? Perianal condyloma; assess for internal tissue abnormality Clinical Impression : ?? Perianal condyloma Pertinent Radiologic Findings ??: ?? (not provided) Gross Description: ?? Received in PreservCyt approximately 20 ml. total volume of ? cloudy, brown fluid, with light flecks. ?? Total Preparation: Liquid Based Prep 1. 03/01/2016 7:24 PM EDT [facility] ANAL CANAL STRUCTURE / Unknown 02/25/2016 9:45 AM EDT 02/25/2016 9:45 AM EDT Lisa POLANCO PATHOLOGY/[place] [address] * Cytopathology Non-Gynecological (02/25/2016 9:44 AM EDT) AP Specimen 02/25/2016 9:44 AM EDT 02/25/2016 9:44 AM EDT Narrative [facility] - 02/25/2016 9:44 AM EDT Specimen requisition ordered. ??Separate Pathology report to follow Darnell Lemon MD PATHOLOGY/CYTOLOGY ORDERABLES Performing Organization Address City/[facility]/[place] [address] documented in this encounter Visit Diagnoses Diagnosis Perianal condylomata Condyloma acuminatum documented in this encounter Care Teams Outboard Motorboat Operator Relationship Specialty Start Date End Date Adwoa Smith APRN PCP - General 05/04/10 01/06/20 documented as of this encounter
--- OUTSIDE RECORDS SUMMARY | 2024-01-19 18:52 | XMS_ITS | Encounter Summary ---
[place] [address] Care Team Providers Care Moisture Tester Name Role Phone Adwoa Smith APRN Primary Care Provider [phone] Encounter Details Date Type Department Care Team (Late st Contact Info) Description 09/27/2016 Telephone [place] [phone] Ree Shultz, RN Social History Tobacco Use Types Packs/Day Years Used Date Smoking Tobacco: Every Day Cigarettes Sex and Gender Information Value Date Recorded Sex Assigned at Not on file Gender Identity Not on file Sexual Orientation Not on file documented as of this encounter Miscellaneous Notes * Telephone Encounter - Ree Shultz, RN - 09/27/2016 9:11 AM EDT Received notification that imiquimod 5% cream needs prior auth. Called [place] Medicaid and imiquimod doesn't need a prior auth if it is processed as the brand name Aldara. Called [facility] and they will process it as Aldara. documented in this encounter Plan of Treatment Not on file documented as of this encounter Visit Diagnoses Not on filedocumented in this encounter Care Teams Moisture Tester Relationship Specialty Start Date End Date Adwoa Smith APRN PCP - General 05/04/10 01/06/20 documented as of this encounter
--- OUTSIDE RECORDS SUMMARY | 2024-01-19 18:52 | XMS_ITS | Encounter Summary ---
[place] [address] Care Team Providers Care Battery Filler Name Role Phone LuisAdwoa Lucas BENAVIDES Primary Care Provider [phone] Reason for Visit * Reason Comments Follow-up ANAL CONDYLOMA HX HP V WOUND CHECK Encounter Details Date Type Department Care Team (Late st Contact Info) Description 04/07/2016 9:30 AM EDT Office Visit [place] [address] Lisa Harris PA [address] [place] [address] Perianal condylomata Social History Tobacco Use Types Packs/Day Years Used Date Smoking Tobacco: Every Day Cigarettes Sex and Gender Information Value Date Recorded Sex Assigned at Not on file Gender Identity Not on file Sexual Orientation Not on file documented as of this encounter Last Filed Vital Signs Vital Sign Reading Time Taken Comments Blood Pressure 161/89 04/07/2016 9:27 AM EDT Pulse 93 04/07/2016 9:27 AM EDT Temperature - - Respiratory Rate - - Oxygen Saturation 99% 04/07/2016 9:27 AM EDT Inhaled Oxygen Concentration - - Weight 78.9 kg (174 lb) 04/07/2016 9:27 AM EDT Height 165 cm (5' 4.96) 04/07/2016 9:27 AM EDT Body Mass Index 28.99 04/07/2016 9:27 AM EDT documented in this encounter Progress Notes * Lisa Harris PA - 04/07/2016 9:30 AM EDT COLON & RECTAL SURGERY Follow-Up Office Visit Interval History: Kerry Reddy is a pleasant 36-year-old female who returns to clinic today for follow up evaluation of perianal condyloma. She was last seen in clinic by me for the same on 03/22/2016, at which time she underwent clinic excision of the lesions. She returns today for followup. She has been doing well since the visit. No new health issues have arisen. No fever or chills. No nausea or vomiting. She is moving her bowels at her baseline, with no blood, no pain with passage of stool. The patient is not aware of any new lumps or lesions that have appeared in perianal skin. PHYSICAL EXAMINATION: Blood pressure 161/89, pulse 93, SPO2 99%, weight 174 pounds, BMI 28.99. On physical examination, the patient appears well, in no apparent distress. Anicteric. Moist mucous membranes. She was examined in the prone, shelley-knife position with Aram assisting. Gentle eversion of the anoderm revealed pristine perianal skin. All areas of wart excision have completely healed today, and there are no breaks in the skin, no areas of erythema, definitely no areas of fluctuance, and absolutely no recurrence of new mass or lump in the perianal skin. IMPRESSION/PLAN: Perianal condyloma, status post clinic excision, currently healed. I have discussed with the patient the signs of infection, and she knows to monitor herself for those. Otherwise, she will return to clinic for surveillance with me in 6 months, and again in 12 months. If neither of those visits reveal any abnormality, then we will plan to extend her surveillance to at least yearly. Additionally, the anal Pap that was performed at her last visit was negative for any abnormality. We will plan to repeat that at the next visit. Lisa Harris PA-C Division of Colon & Rectal Surgery [facility] Pager #[phone] YQ PCP: DULCE ALLEN MD documented in this encounter Plan of Treatment Not on file documented as of this encounter Visit Diagnoses Diagnosis Perianal condylomata Condyloma acuminatum documented in this encounter Care Teams Battery Filler Relationship Specialty Start Date End Date Adwoa Smith APRN PCP - General 05/04/10 01/06/20 documented as of this encounter
--- OUTSIDE RECORDS SUMMARY | 2024-01-19 18:52 | XMS_ITS | Encounter Summary ---
[place] [address] Care Team Providers Care Pilot Plant Technician Name Role Phone Adwoa Smith APRN Primary Care Provider [phone] Encounter Details Date Type Department Care Team (Late st Contact Info) Description 03/01/2016 Telephone [place] [phone] Lisa Harris PA [address] [place] [id number] Social History Tobacco Use Types Packs/Day Years Used Date Smoking Tobacco: Every Day Cigarettes Sex and Gender Information Value Date Recorded Sex Assigned at Not on file Gender Identity Not on file Sexual Orientation Not on file documented as of this encounter Miscellaneous Notes * Telephone Encounter - Lisa Harris PA - 03/01/2016 8:34 AM EDT I called patient today re recent test results. No answer, so I left [facility] for her to return my call. Lisa Harris PA-C Division of Colon & Rectal Surgery [facility] Pager #[phone] documented in this encounter Plan of Treatment Not on file documented as of this encounter Visit Diagnoses Not on filedocumented in this encounter Care Teams Pilot Plant Technician Relationship Specialty Start Date End Date Adwoa Smith APRN PCP - General 05/04/10 01/06/20 documented as of this encounter
--- OUTSIDE RECORDS SUMMARY | 2024-01-19 18:52 | XMS_ITS | Encounter Summary ---
[place] [address] Care Team Providers Care Player Development Executive Name Role Phone LuisAdwoa Lucas BENAVIDES Primary Care Provider [phone] Reason for Visit * Reason Comments Follow-up ANAL CONDYLOMA HX HP V Encounter Details Date Type Department Care Team (Late st Contact Info) Description 09/20/2016 9:30 AM EDT Office Visit [place] [address] Lisa Harris PA [address] [place] [address] Perianal condylomata Social History Tobacco Use Types Packs/Day Years Used Date Smoking Tobacco: Every Day Cigarettes Sex and Gender Information Value Date Recorded Sex Assigned at Not on file Gender Identity Not on file Sexual Orientation Not on file documented as of this encounter Last Filed Vital Signs Vital Sign Reading Time Taken Comments Blood Pressure 156/94 09/20/2016 9:38 AM EDT Pulse 73 09/20/2016 9:38 AM EDT Temperature - - Respiratory Rate 16 09/20/2016 9:38 AM EDT Oxygen Saturation 95% 09/20/2016 9:38 AM EDT Inhaled Oxygen Concentration - - Weight 82.1 kg (180 lb 14.4 oz) 09/20/2016 9:38 AM EDT Height 165 cm (5' 4.96) 09/20/2016 9:38 AM EDT Body Mass Index 30.14 09/20/2016 9:38 AM EDT documented in this encounter Progress Notes * Lisa Harris PA - 09/20/2016 9:30 AM EDT Images from the original note were not included. COLON & RECTAL SURGERY Follow-Up Office Visit 03/22/2016 Clinic excision of perianal condyloma 09/20/2016 Perianal condyloma recurrence; started topical Aldara Interval History: Kerry Reddy is a pleasant 36-year-old female who returns to clinic today for followup evaluation of perianal condyloma. She was last seen in clinic by me on 04/07/2016 for followup, after having undergone clinic excision of the lesions in 03/2016. At the last visit, patient was doing well, and all areas of wart excision had completely healed. There were no breaks in the skin, no erythema, absolutely no recurrence of any new masses or lumps in the perianal skin. She returns today for followup, stating that she has been doing well since the last visit. No new health issues have arisen. No recent fevers or chills. No nausea or vomiting. No abdominal pain. Unfortunately, she noticed in early July that there were some new lesions in the perianal skin. She is moving her bowels at her baseline, typically once a day, with no blood, no pain. No episodes of incontinence to stool or gas. No change in baseline urinary habits, no hematuria, no dysuria. No unusual vaginal discharge. Medications: None. Allergies: No known drug allergies. Physical Exam: Constitutional: Blood pressure (!) 156/94, pulse 73, resp. rate 16, height 165 cm (5' 4.96), weight 82.1 kg (180 lb 14.4 oz), SpO2 95 %. Body mass index is 30.14 kg/(m^2). NAD, very pleasant female,appearing to be stated age. Moist mucus membranes. No pallor. Psyche: Oriented to person, place and time. Appropriate mood and affect. Patient is able to ambulate and transfer without assistance; gait without deficits. Full ROM of extremities x 4. Skin: Skin without rashes, lesions or ulcer. No jaundice. Eyes: Sclerae anicteric. No swollen lids. ENT: Ears and nose with normal appearance, no scars, no lesions, no masses. Resp: No audible wheeze. No increased work of breathing. No use of accessory muscles. Cardio: No c/c/e. GI/Abd: The patient was examined in the xkkoo-fbyy-qfdwr position with Aram assisting. Gentle eversion of the anoderm revealed several scattered verruca.(see photo below) Resting tone was within normal limits, as was squeeze/aumengtation. FABIEN was unremarkable. Anoscopy was performed into the rectum and revealed no internal mass or lump or lesion, no verruca. Impression: Perianal condyloma Plan: I had a lengthy discussion with the patient regarding the pathophysiology of perianal condyloma. Non-operative treatment options include topical Imiquimod 5% applied locally to promote host suppression of HPV proliferation. Common side effects of the treatment were also discussed. Alternativetreatments are electrodessication. Patient elected to try the topical cream first, with the understanding that if that does not eradicate the lesions, then we can proceed with electrodesiccation in clinic. She was provided a hand-out detaining the application and use of the cream (Andria). RTC in 16 weeks (12 weeks of treatment, followed by a 4 week cooling off period). Lisa Harris PA-C Division of Colon & Rectal Surgery [facility] Pager #[phone] CC PCP: Kayla Salguero MD documented in this encounter Plan of Treatment Not on file documented as of this encounter Visit Diagnoses Diagnosis Perianal condylomata Condyloma acuminatum documented in this encounter Care Teams Player Development Executive Relationship Specialty Start Date End Date Adwoa Smith APRN PCP - General 05/04/10 01/06/20 documented as of this encounter
--- OUTSIDE RECORDS SUMMARY | 2024-01-19 18:52 | XMS_ITS | Encounter Summary ---
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 Name Role Phone MaunaboAdwoa ortiz MAKAYLA Primary Care Provider [phone] Reason for Visit * Reason Comments Establish Care Encounter Details Date Type Department Care Team (Late st Contact Info) Description 01/16/2017 9:00 AM EDT Office [place] [address] Lisa Harris PA [address] [place] [address] Perianal condylomata Social History Tobacco Use Types Packs/Day Years Used Date Smoking Tobacco: Every Day Cigarettes Sex and Gender Information Value Date Recorded Sex Assigned at Not on file Gender Identity Not on file Sexual Orientation Not on file documented as of this encounter Last Filed Vital Signs Vital Sign Reading Time Taken Comments Blood Pressure 151/90 01/16/2017 9:03 AM EDT Pulse 77 01/16/2017 9:03 AM EDT Temperature 36.8 ??C (98.3 ??F) 01/16/2017 9:03 AM ED T Respiratory Rate 18 01/16/2017 9:03 AM EDT Oxygen Saturation 100% 01/16/2017 9:03 AM EDT Inhaled Oxygen Concentration - - Weight 78.9 kg (174 lb) 01/16/2017 9:03 AM EDT Height - - Body Mass Index 28.99 09/20/2016 9:38 AM EDT documented in this encounter Progress Notes * Lisa Harris PA - 01/16/2017 9:00 AM EDT Images from the original note were not included. COLON & RECTAL SURGERY Follow-Up Office Visit 03/22/2016 Clinic excision of perianal condyloma 09/20/2016 Perianal condyloma recurrence; started topical Aldara Interval History: Kerry Reddy returns to clinic today for followup evaluation of perianal condyloma. She was last seen in clinic by me on 09/20/2016, at which time physical examination revealed several scattered, verrucous-appearing lesions in the perianal skin. I prescribed her a course of Aldara, 3 months of use. She returns today for followup, stating that she is not able to tolerate the Aldara due to flu-like systemic effects. She used it for a total of about 3 weeks. She was compliant with the regimen during that time. She says that she believes the number of lesions on her bottom have greatly decreased, though she thinks that she can still feel 2 small ones. She is moving her bowels at her baseline, no blood, no pain. She feels otherwise well. Physical Exam: Constitutional: Temperature 36.8 ??C (98.3 ??F), resp. rate 18, weight 78.9 kg (174 lb), SpO2 100 %. Body mass index is 28.99 kg/(m^2). NAD, very pleasant female, appearing to be stated age. Moist mucus membranes. [...] GI/Abd: The patient was examined in the qikyr-fazi-aiauo position with Aram assisting. Gentle eversion of the anoderm revealed 2 tiny pinpoint verrucous- appearing lesions in the left perianal skin (onw left posterior, the other left anterior). Resting tone was within normal limits, as was squeeze/aumengtation. FABIEN was unremarkable. Anoscopy was performed into the rectum and revealed no internal mass or lump or lesion, no ulcer, no pus within the anal canal. Impression/Plan: Based on physical examination today, the patient has had a significant quite a bit of result from the use of the Aldara, despite having used it for only 3 months. The only abnormalities I see are in the left perianal skin, 2 very tiny pinpoint verrucous-appearing lesions. What I recommended to patient was that she resume the topical Aldara, limiting the use to direct application only to the 2 lesions still present. Goal will be 4 weeks of use. To lessen the systemic effects of the medication I recommended she decrease from 3 times weekly to twice weekly usage, and that she use Tylenol around the clock 1000 mg t.i.d. for the first few days of treatment. All of her questions are answered. Patient is in agreement with the plan as stated herein. She will use the topical medication as directed. She will then return to clinic for followup evaluation with me in 6 months. If there are any lesions at that point, then we can proceed with electrodesiccation in the clinic for those. Lisa Harris PA-C Division of Colon & Rectal Surgery [facility] Pager #[phone] CC PCP: Kayla Salguero MD _ ENCOUNTER DATE: 09/20/2016 COLON & RECTAL SURGERY Follow-Up Office Visit [...] GI/Abd: The patient was examined in the opqsb-kcga-yvrgs position with Aram assisting. Gentle eversion of [...] the application and use of the cream (Aldara). RTC in 16 weeks (12 weeks of treatment, followed by a 4 week cooling off period). Lisa Harris PA-C Division of Colon & Rectal Surgery [facility] Pager #[phone] CC PCP: Kayla Salguero MD documented in this encounter Plan of Treatment Not on file documented as of this encounter Visit Diagnoses Diagnosis Perianal condylomata Condyloma acuminatum documented in this encounter Care Teams Saddle Stitching Machine Operator Relationship Specialty Start Date End Date Adwoa Smith APRN PCP - General 05/04/10 01/06/20 documented as of this encounter
[2024-01-22 13:35] LABS: Calprotectin <50.0 mcg/g
== END 2024-01-19 18:50 | disposition home or self-care (01) ==
LOC: LBN 18:49
PROVIDERS: PCP Family Medicine; Visit Provider Nurse Practitioner Adult Health
DX: R19.7 Diarrhea, unspecified (principal)
CPT/HCPCS: 83993

== ENCOUNTER 2024-10-02 12:13 | Outpatient (REF) | payer MEDICAID, SELFPAY ==
--- NOTE | 2024-10-02 12:02 | PAPFT_PTH ---
PATIENT: Kerry Reddy LOC: [facility] U#:[id number] AGE/SX: 44/F ROOM: RE10/02/[address]: Rupali Roberson : 1980 BED: DIS: 10/02/2024 SPEC #: [id number] RECD: 10/02/24 13:13 STATUS: OSIEL REQ #: [id number] SARAH: 10/02/24 12:[address]: Rupali Roberson DEPT: [facility] Cytology RECD BY: Maryan Ortiz ENTERED: 10/02/24 13:13 SP TYPE: PAPFT OTHR DR: Kayla Salguero V Tissues: 1 - CX/ENDOCX FOR PAP SMEARS Procedures: PAP THIN PREP/UVM Screening HPV DNA PROBE Comments: [id number] (HPV 16 & 18/45) (CHLAMYDIA/GC)
[2024-10-03 12:42] LABS: Chlamydia Result Negative (Negative); GC Result Negative (Negative)
== END 2024-10-02 12:14 | disposition home or self-care (01) ==
LOC: LBN 12:13
PROVIDERS: PCP Family Medicine; Visit Provider Advanced Practice Midwife
DX: Z12.4 Encounter for screening for malignant neoplasm of cervix (principal); Z11.3 Encounter for screening for infections with a predominantly sexual mode of transmission
CPT/HCPCS: 87491; 87591; 88142; 87624

== ENCOUNTER 2024-10-04 00:11 | Outpatient (CLI) | payer MEDICAID, SELFPAY ==
--- NOTE | 2024-10-04 15:29 | DI.MAMMO_ITS ---
Exam(s) MAMMO SCREENING EXAM: MAMMO SCREENING CLINICAL HISTORY: Screening, Z12.31. TECHNIQUE: Bilateral full field digital CC and MLO mammographic images were obtained with 3D tomosyn thesis and utilizing computer aided detection (CAD). COMPARISON: Prior mammograms were reviewed. FINDINGS: There has been no significant change in the appearance and distribution of the fibroglandular tissue which is again noted be moderately dense.. There are no new spiculated masses nor malignant appearing microcalcification groups. There is no significant architectural distortion nor skin thickening-retraction. IMPRESSION: No radiographic evidence of malignancy. BI-RADS Category 1 - Negative Breast Density - Category C - Heterogeneously dense Breast density Category C or D implies that the patient has dense breast tissue. Dense breast tissue can make it harder to find cancer on a mammogram. Dense breast tissue is also associated with an incr eased risk of breast cancer. This information about the result of the mammogram report was provided to the patient to raise their awareness. Use this report when you speak with the patient about their risks for breast cancer, which includes their family history. At that time, you may recommend additional screening tests (Ultrasoun d or MRI) as these tests may add significant information. A negative radiographic report should not delay biopsy if a dominant or clinically suspicious mass is present. Up to ten percent of cancers are not identified on mammography. A negative report may reinforce clinical impression. Adenosis and dense breasts may obscure an underlying neoplasm. False positive reports average 6 to 10%. Patient will receive a letter notifying them of these results.
== END 2024-10-04 00:31 ==
PROVIDERS: PCP Family Medicine; Visit Provider Family Medicine
DX: Z12.31 Encounter for screening mammogram for malignant neoplasm of breast (principal); R92.323 Mammographic fibroglandular density, bilateral breasts
CPT/HCPCS: 77063; 77067

== ENCOUNTER 2024-10-16 16:08 | Outpatient (REF) | payer MEDICAID, SELFPAY | END 2024-10-16 16:09 | disposition home or self-care (01) | LOC: LBN 16:08 | PROVIDERS: PCP Family Medicine; Visit Provider Advanced Practice Midwife | DX: R87.629 Unspecified abnormal cytological findings in specimens from vagina (principal) | CPT/HCPCS: 87480; 87510; 87660 ==

== ENCOUNTER 2025-04-28 10:26 | Outpatient (REF) | payer MEDICAID, SELFPAY | END 2025-04-28 10:27 | disposition home or self-care (01) | LOC: LBN 10:26 | PROVIDERS: PCP Family Medicine; Visit Provider Advanced Practice Midwife | DX: Z30.433 Encounter for removal and reinsertion of intrauterine contraceptive device (principal) | CPT/HCPCS: 87480; 87510; 87660 ==